=== PATIENT | male | born 1955 | race Two or more races ===

== ENCOUNTER 2024-12-29 07:27 | Inpatient (IN) | payer MEDICARE, MEDICAID ==
[~2024-12-29] VITALS: Ht 167.6 cm; Wt 123.8 kg
--- NOTE | 2024-12-29 07:43 | ECG ---
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
[2024-12-29 07:58] LABS: Hematocrit 38.1 % (41.0-53.0); Hemoglobin 13.1 g/dL (13.5-17.5); Mean Corpuscular Hemoglobin 34.5 pg (28.0-32.0); Mean Corpuscular Volume 100.4 fL (80.0-100.0); Nucleated Red Blood Cells % 0.0 %
[2024-12-29 08:09] VITALS: PULSE 105; RESP 13; O2SAT 98
[2024-12-29 08:16] LABS: INR 1.03 (0.9-1.15); Partial Thromboplastin Time 31.3 SEC (24.5-34.5); Prothrombin Time 10.9 sec (9.3-11.8)
[2024-12-29 08:17] LABS: Alanine Aminotransferase 12 U/L (7-40); Albumin 4.3 g/dL (3.2-4.8); Alkaline Phosphatase 77 U/L (46-116); Anion Gap 13 (5-15); BUN/Creatinine Ratio 14.5 (10.0-20.0); Bilirubin, Total 0.4 mg/dL (0.2-1.0); Blood Urea Nitrogen 25 mg/dL (9-23); Calcium 9.6 mg/dL (8.7-10.4); Carbon Dioxide 24 mmol/L (20-31); Chloride 94 mmol/L (98-107); Glucose 125 mg/dL (74-106); Potassium 4.3 mmol/L (3.5-5.1); Sodium 131 mmol/L (136-145); Total Protein 7.3 g/dL (5.7-8.2)
--- NOTE | 2024-12-29 08:17 | ED.PDOC ---
History of Present Illness HPI Comments 69-YEAR-OLD MALE BROUGHT IN BY AMBULANCE WITH PRIOR MEDICAL HISTORY OF [place], DIABETES AND THE CHIEF COMPLAINT OF GENERALIZED WEAKNESS. EMS REPORT THAT THE PATIENT WAS PICKED UP AT HOME S/P BEING CALLED BY FAMILY. PATIENT STATES ON FEELING VERY WEAK BILATERAL LOWER EXTREMITY PAIN FOR THE PAST TWO WEEKS, AND HAS WORSENED. PATIENT NOTES THAT HIS TOES ARE BLEEDING, BUT DENIES ANY TRAUMA TO THE AREA. DENIES FALLS, CHILLS, FEVER, N/V/D, SOB, CP. NO OTHER ASSOCIATED SYMPTOMS, MODIFIERS, RECENT INJURIES OR SICK CONTACTS PRESENT AT THIS TIME. Chief Complaint: General Weakness Time Seen by MD: 08:15 Reviewed Notes: Nurses Notes, Medications, Allergies Allergies: Coded Allergies: NO KNOWN ALLERGIES (Unverified , 12/29/24) Information Source: Patient, Emergency Med Personnel Mode of Arrival: EMS Severity: Moderate Timing: Weeks Duration: Since onset Prehospital treatment: None Past Medical History PAST MEDICAL HISTORY: DM Past Medical History (Other): [place] Surgical History: Denies all surgeries Family History Family History: Reviewed,noncontributory to illness, Unknown Social History Smoker: Non-Smoker Alcohol: Denies ETOH Use Drugs: Denies Drug Use Lives In: Home Constitutional: reports: weakness; denies: chills, diaphoresis, fatigue, fever, malaise, sweats, others EENTM: denies: blurred vision, double vision, ear bleeding, ear discharge, ear drainage, ear pain, ear ringing, eye pain, eye redness, hearing loss, mouth pain, mouth swelling, nasal discharge, nose bleeding, nose congestion, nose pain, photophobia, tearing, throat pain, throat swelling, voice changes, others Respiratory: denies: cough, hemoptysis, orthopnea, SOB at rest, shortness of breath, SOB with excertion, stridor, wheezing, others Cardiovascular: reports: edema (BILATERAL); denies: chest pain, dizzy spells, diaphoresis, Dyspnea on exertion, irregular heart beat, left arm pain, lightheadedness, palpitations, PND, syncope, others Gastrointestinal: denies: abdomen distended, abdominal pain, blood streaked bowels, constipated, diarrhea, dysphagia, difficulty swallowing, hematemesis, melena, nausea, poor appetite, poor fluid intake, rectal bleeding, rectal pain, vomiting, others Genitourinary: denies: burning, dysuria, flank pain, frequency, hematuria, incontinence, penile discharge, penile sore, pain, testicle pain, testicle swelling, urgency, others Neurological: denies: dizziness, fainting, headache, left sided numbness, left sided weakness, numbness, paresthesia, pre-existing deficit, right sided numbness, right sided weakness, seizure, speech problems, tingling, tremors, weakness, others Musculoskeletal: denies: back pain, gout, joint pain, joint swelling, muscle pain, muscle stiffness, neck pain, others Integumetry: denies: bruises, change in color, change in hair/nails, dryness, laceration, lesions, lumps, rash, wounds, others Allergic/Immunocompromised: denies: Difficulty Healing, Frequent Infections, Hives, Itching, others Hematologic/Lymphatic: denies: anemia, blood clots, easy bleeding, easy bruising, swollen glands, others Endocrine: denies: excessive hunger, excessive sweating, excessive thirst, excessive urination, flushing, intolerance to cold, intolerance to heat, unexplained weight gain, unexplained weight loss, others Psychiatric: denies: anxiety, bipolar disorder, depression, hopeless, panic disorder, schizophrenia, sleepless, suicidal, others All Other Systems: Reviewed and Negative Physical Exam General Appearance: No Apparent Distress, Normal HEENT: Normal ENT Inspection, Pharynx Normal, TMs Normal Neck: Full Range of Motion, Non-Tender, Normal, Normal Inspection Respiratory: Chest Non-Tender, Lungs Clear, No Accessory Muscle Use, No Respiratory Distress, Normal Breath Sounds Cardiovascular: No Edema, No JVD, No Murmur, No Gallop, Normal Peripheral Pulses, Regular Rate/Rhythm Breast Exam: Deferred Gastrointestinal: No Organomegaly, Non Tender, No Pulsatile Mass, Normal Bowel Sounds, Soft Genitalia: Deferred Pelvic: Deferred Rectal: Deferred Extremities: No calf tenderness, Normal capillary refill, Normal inspection, Normal range of motion, Non-tender, No pedal edema Musculoskeletal : Apperance: Normal Neurologic: 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 Was a procedure done?: No EKG EKG : Pulse Rate (adult): 116 [place]: Normal Cardiac Rhythm: ST Block: None Hypertrophy: None ST: Normal Differential Dx Considerations may include: Cellulitis, viral syndrome, electrolyte abnormality X-Ray, Labs, Meds, VS Vital Signs Date Time Temp Pulse Resp B/P (MAP) Pulse Ox O2 Delivery O2 Flow Rate FiO2 12/29/24 10:30 98.8 93 10 122/62 (82) 97 98.8 12/29/24 08:17 116 12/29/24 08:09 95 12/29/24 08:09 105 13 139/73 (95) 98 12/29/24 08:09 105 13 98 Nasal Cannula* 2 28 12/29/24 07:51 98.1 120 18 120/62 93 98.1 12/29/24 07:37 116 Lab Test 12/29/24 11:50 12/29/24 09:27 12/29/24 07:43 Range/Units Troponin I High Sensitivity 16 15 14 </=54 ng/L White Blood Count 10.3 4.4-10.8 10^3/uL Red Blood Count 3.79 L 4.5-5.90 10^6/uL Hemoglobin 13.1 L 13.5-17.5 g/dL Hematocrit 38.1 L 41.0-53.0 % Mean Corpuscular Volume 100.4 H 80.0-100.0 fL Mean Corpuscular Hemoglobin 34.5 H 28.0-32.0 pg Mean Corpuscular Hemoglobin Concent 34.4 32.0-36.0 g/dL Red Cell Distribution Width 14.7 H 11.8-14.3 % Platelet Count 291 140-450 10^3/uL Mean Platelet Volume 8.2 6.9-10.8 fL Neutrophils (%) (Auto) 81.4 H 37.0-80.0 % Lymphocytes (%) (Auto) 8.6 L 10.0-50.0 % Monocytes (%) (Auto) 7.7 0.0-12.0 % Eosinophils (%) (Auto) 1.4 0.0-7.0 % Basophils (%) (Auto) 0.9 0.0-2.0 % Neutrophils # (Auto) 8.4 1.6-8.6 10 ^3/uL Lymphocytes # (Auto) 0.9 0.4-5.4 10 ^3/uL Monocytes # (Auto) 0.8 0-1.3 10 ^3/uL Eosinophils # (Auto) 0.1 0-0.8 10 ^3/uL Basophils # (Auto) 0.1 0-0.2 10 ^3/uL Nucleated Red Blood Cells 0.0 % Prothrombin Time 10.9 9.3-11.8 sec Prothrombin Time INR 1.03 0.9-1.15 Activated Partial Thromboplast Time 31.3 24.5-34.5 SEC Sodium Level 131 L 136-145 mmol/L Potassium Level 4.3 3.5-5.1 mmol/L Chloride Level 94 L 98-107 mmol/L Carbon Dioxide Level 24 20-31 mmol/L Anion Gap 13 5-15 Blood Urea Nitrogen 25 H 9-23 mg/dL Creatinine 1.72 H 0.700-1.30 mg/dL Glomerular Filtration Rate Calc 43 >90 mL/min BUN/Creatinine Ratio 14.5 10.0-20.0 Serum Glucose 125 H 74-106 mg/dL Calcium Level 9.6 8.7-10.4 mg/dL Total Bilirubin 0.4 0.2-1.0 mg/dL Aspartate Amino Transferase (AST) 21 13-40 U/L Alanine Aminotransferase (ALT) 12 7-40 U/L Alkaline Phosphatase 77 46-116 U/L Total Protein 7.3 5.7-8.2 g/dL Albumin 4.3 3.2-4.8 g/dL Time of 1ST Reevaluation: 08:45 Reevaluation 1ST: Unchanged Patient Education/Counseling: Diagnosis, Treatment, Prognosis Family Education/Counseling: No Family Present SEPSIS Sepsis Screen Physician Orders Urinalysis (12/29/24 07:30) Chest Portable (12/29/24 07:31) Electrocardigram (12/29/24 08:31) Electrocardigram (12/29/24 10:31) Lactic Acid W/ Reflex Order (12/29/24 11:52) Blood Culture (12/29/24 11:52) Vancomycin 1gm/250ml Kit (12/29/24 12:45) Vital Signs Date Time Temp Pulse Resp B/P (MAP) Pulse Ox O2 Delivery O2 Flow Rate FiO2 12/29/24 10:30 98.8 93 10 122/62 (82) 97 98.8 12/29/24 08:17 116 9/24/25 08:09 95 12/29/24 08:09 105 13 139/73 (95) 98 12/29/24 08:09 105 13 98 Nasal Cannula* 2 28 12/29/24 07:51 98.1 120 18 120/62 93 98.1 12/29/24 07:37 116 Laboratory Tests Test 12/29/24 07:43 White Blood Count 10.3 10^3/uL (4.4-10.8) Departure 1 Departure Time of Disposition: 12:51 (Patient with cellulitis and generalized weakness. We will empirically cover patient with antibiotics admit patient for further workup) Impression: Primary Impression: Cellulitis Additional Impression: Generalized weakness Disposition: ADMITTED INPATIENT Admit to: Med Surg Condition: Serious Critical Care Note Critical Care Time?: No Stability Stability form required: No I personally scribed for ALCON VELAZQUEZ MD ([email or web address]) on 12/29/24 at 08:17. Electronically submitted by Max Brooks ([email or web address]). ALCON VELAZQUEZ MD Dec 29, 2024 08:17
--- NOTE | 2024-12-29 08:26 | DVH ---
EXAM: XY CHEST PORTABLE Indication: weakness Technique: Single frontal view of the chest was obtained Comparison: None FINDINGS: Lines and Tubes: None Lungs: No focal consolidation. Pleura: No effusion. No pneumothorax. Cardiomediastinal contours: Unremarkable Bones: No acute osseous abnormality. IMPRESSION: No acute cardiopulmonary disease.
[2024-12-29] MEDS: VANCOMYCIN 1GM/250ML KIT 250 ML IV ONE (13:06)
[2024-12-29] MEDS ORDERED: DOCUSATE SOD 100 MG CAP PO PRN (14:15)
[2024-12-29] MEDS ORDERED: ONDANSETRON HCL 4 MG/2 ML VIAL IV PRN (14:15)
[2024-12-29] MEDS ORDERED: ACETAMINOPHEN 325 MG TAB PO PRN (14:15)
[2024-12-29] MEDS ORDERED: METF-370 PO (14:18)
[2024-12-29] MEDS ORDERED: LOSA100T33 PO (14:18)
[2024-12-29] MEDS ORDERED: GAB100C PO (14:18)
[2024-12-29] MEDS ORDERED: HYDR-4798 PO (14:18)
[2024-12-29] MEDS ORDERED: ZOLP12.569 PO (14:18)
[2024-12-29] MEDS ORDERED: CHOL1TAB30 PO (14:18)
[2024-12-29] MEDS ORDERED: BACL10TA PO (14:18)
[2024-12-29 14:19] LABS: Urine Protein, UAD Negative (Negative)
--- NOTE | 2024-12-29 14:27 | DVH ---
CLINICAL INDICATION: Pain; fall TECHNIQUE: 3 radiographic views of the left foot were obtained. Comparison: XY R FOOT 3 VIEW XRAY on DOS: 12/29/24 FINDINGS/IMPRESSION: There is no evidence of acute fracture or dislocation. The visualized joint space is well maintained. Small plantar and posterior calcaneal enthesophytes. The alignment is anatomical. There is no radiopaque foreign body.
[2024-12-29] MEDS ORDERED: DEXTROSE (50%) 50ML SYRG IV PRN (14:30)
[2024-12-29] MEDS ORDERED: ZOLPIDEM TARTRATE 12.5 MG PO PRN (14:30)
--- NOTE | 2024-12-29 14:30 | DVH ---
CLINICAL INDICATION:pain; fall TECHNIQUE: 3 radiographic views of the right were obtained. Comparison: XY L FOOT 3 VIEW XRAY on DOS: 12/29/24 FINDINGS/IMPRESSION: There is no evidence of acute fracture or dislocation. The visualized joint space is well maintained. Small plantar and posterior calcaneal enthesophytes. The alignment is anatomical. There is no radiopaque foreign body.
--- NOTE | 2024-12-29 14:44 | DVHHP2 ---
History of Present Illness Reason for Visit: Feet pain History of Present Illness Stevie Sahu is a 69-year-old male with past medical history of diabetes, coronary artery disease, hard of hearing, obesity, and hypertension, who came to the hospital due to bilateral feet pain. Patient has swelling to his bilateral lower extremities that he states has been for for years. His bilateral feet have small wounds and bleeding to the toes that he states is new and why he came to the hospital. Patient states he has been working on losing weight. He is on [facility] to help him. Cardiovascular: CAD, Other (PTCA) Pulmonary: COPD Endocrine: Diabetes Past Surgical History: Other (PTCA, carpal tunnel ) Smoke: No ALCOHOL: heavy (4 hard liquor drinks or 3 tall cans of beer a day) Drugs: None Lives: with Family Domestic Violence: Neg Review of Systems Constitutional: No: Fever, Chills, Sweats, Weakness, Malaise, Other Eyes: No: Pain, Vision change, Conjunctivae inflammation, Eyelid inflammation, Other, Redness ENT: No: Ear pain, Ear discharge, Nose pain, Nose discharge, Nose congestion, Mouth pain, Mouth swelling, Throat pain, Throat swelling, Other Respiratory: No: Cough, Dry, Shortness of breath, SOB with excertion, Wheezing, Hemoptysis, Pleuritic Pain, Sputum, Wheezing, Other Cardiovascular: Edema (bilateral lower extremities); No: Chest Pain, Palpitations, Orthopnea, Paroxysmal Noc. Dyspnea, Lt Headedness, Other Gastrointestinal: No: Nausea, Vomiting, Abdominal Pain, Diarrhea, Constipation, Melena, Hematochezia, Other Genitourinary: No Dysuria, No Frequency, No Incontinence, No Hematuria, No Retention, No Other Musculoskeletal: No: other, neck pain, shoulder pain, arm pain, back pain, hand pain, leg pain, foot pain Skin: Other (bleeding/cuts to toes on bilateral feet); No: Rash, Lesions, Jaundice, Bruising Neurological: No: Weakness, Numbness, Incoordination, Change in speech, Confusion, Seizures, Other Allergies: Coded Allergies: NO KNOWN ALLERGIES (Unverified , 12/29/24) Medications Current Medications Medications Dose Ordered Sig/Carloz Route Start Time Stop Time Status Last Admin Dose Admin Ondansetron HCl 4 mg Q4HP PRN IV 12/29/24 14:15 UNV Docusate Sodium 100 mg BIDPRN PRN PO 12/29/24 14:15 UNV Acetaminophen 650 mg Q6HP PRN PO 12/29/24 14:15 UNV Exam Vital Signs Vital Signs Date Time Temp Pulse Resp B/P (MAP) Pulse Ox O2 Delivery O2 Flow Rate FiO2 12/29/24 12:00 96 12/29/24 10:30 98.8 10 122/62 (82) 97 98.8 12/29/24 08:09 Nasal Cannula* 2 28 General Appearance: Alert, Oriented X3, Cooperative, mild distress HEENT: Atraumatic, PERRLA Respiratory: Clear to auscultation, Normal air movement Cardiovascular: Regular rate, Normal S1, Normal S2 Abdominal: Normal bowel sounds, Soft Extremities: No clubbing, No cyanosis, Other (swelling bilateral lower ectremities) Skin: No significant lesion (small wound to bilateral lower extremities) Neuro: Normal speech Psych/Mental Status: Mental status NL, Mood NL Labs/Xrays Labs Test 12/29/24 13:05 12/29/24 11:50 12/29/24 07:43 12/29/24 07:30 Range/Units Lactic Acid Level 1.9 0.4-2.0 mmol/L Troponin I High Sensitivity 16 </=54 ng/L White Blood Count 10.3 4.4-10.8 10^3/uL Red Blood Count 3.79 L 4.5-5.90 10^6/uL Hemoglobin 13.1 L 13.5-17.5 g/dL Hematocrit 38.1 L 41.0-53.0 % Mean Corpuscular Volume 100.4 H 80.0-100.0 fL Mean Corpuscular Hemoglobin 34.5 H 28.0-32.0 pg Mean Corpuscular Hemoglobin Concent 34.4 32.0-36.0 g/dL Red Cell Distribution Width 14.7 H 11.8-14.3 % Platelet Count 291 140-450 10^3/uL Mean Platelet Volume 8.2 6.9-10.8 fL Neutrophils (%) (Auto) 81.4 H 37.0-80.0 % Lymphocytes (%) (Auto) 8.6 L 10.0-50.0 % Monocytes (%) (Auto) 7.7 0.0-12.0 % Eosinophils (%) (Auto) 1.4 0.0-7.0 % Basophils (%) (Auto) 0.9 0.0-2.0 % Neutrophils # (Auto) 8.4 1.6-8.6 10 ^3/uL Lymphocytes # (Auto) 0.9 0.4-5.4 10 ^3/uL Monocytes # (Auto) 0.8 0-1.3 10 ^3/uL Eosinophils # (Auto) 0.1 0-0.8 10 ^3/uL Basophils # (Auto) 0.1 0-0.2 10 ^3/uL Nucleated Red Blood Cells 0.0 % Prothrombin Time 10.9 9.3-11.8 sec Prothrombin Time INR 1.03 0.9-1.15 Activated Partial Thromboplast Time 31.3 24.5-34.5 SEC Sodium Level 131 L 136-145 mmol/L Potassium Level 4.3 3.5-5.1 mmol/L Chloride Level 94 L 98-107 mmol/L Carbon Dioxide Level 24 20-31 mmol/L Anion Gap 13 5-15 Blood Urea Nitrogen 25 H 9-23 mg/dL Creatinine 1.72 H 0.700-1.30 mg/dL Glomerular Filtration Rate Calc 43 >90 mL/min BUN/Creatinine Ratio 14.5 10.0-20.0 Serum Glucose 125 H 74-106 mg/dL Calcium Level 9.6 8.7-10.4 mg/dL Total Bilirubin 0.4 0.2-1.0 mg/dL Aspartate Amino Transferase (AST) 21 13-40 U/L Alanine Aminotransferase (ALT) 12 7-40 U/L Alkaline Phosphatase 77 46-116 U/L Total Protein 7.3 5.7-8.2 g/dL Albumin 4.3 3.2-4.8 g/dL Urine Color Light-yellow Yellow Urine Clarity Clear Clear Urine pH 5.0 5.0-9.0 Urine Specific [place] 1.017 1.001-1.035 Urine Protein Negative Negative Urine Ketones Negative Negative Urine Blood Negative Negative /uL Urine Nitrite Negative Negative Urine Bilirubin Negative Negative Urine Urobilinogen Normal Negative mg/dL Urine Leukocyte Esterase Negative Negative /uL Urine RBC 1 0 - 3 /hpf Urine Microscopic WBC 1 0-3 /HPF Urine Squamous Epithelial Cells Few <5 /hpf Urine Bacteria None seen None Seen /hpf Urine Glucose Normal Normal mg/dL EXAM: XY CHEST PORTABLE FINDINGS: Lines and Tubes: None Lungs: No focal consolidation. Pleura: No effusion. No pneumothorax. Cardiomediastinal contours: Unremarkable Bones: No acute osseous abnormality. IMPRESSION: No acute cardiopulmonary disease. SEPSIS Sepsis Screen Date sepsis recognized/suspect: Dec 29, 2024 Time Sepsis recognized/suspect: 808 Recent Procedure: No On Antibiotic Therapy: No Respiratory Rate >20: No Heart Rate >90: Yes Temp<36 C (96.8 F) or >38.3 C: No SBP <90 or MAP <65 mmHG: No New Acute Mental Status Change: No Is the patient on CPAP, BIPAP,: No Physician Orders Urinalysis (12/29/24 07:30) Chest Portable (12/29/24 07:31) Electrocardigram (12/29/24 08:31) Electrocardigram (12/29/24 10:31) Blood Culture (12/29/24 11:52) L Foot 3 View Xray (12/29/24 13:42) R Foot 3 View Xray (12/29/24 13:42) Admit (12/29/24 14:08) Code Status (12/29/24 14:08) 2 Gm Sodium Diet (12/29/24 Dinner) Ondansetron Hcl (Zofran) (12/29/24 14:15) Docusate Sodium Capsule (Colace Capsule) (12/29/24 14:15) Fall Risk Precautions In Place QSHIFT (12/29/24 14:08) Complete Blood Count (12/30/24 04:00) Comprehensive Metabolic Panel (12/30/24 04:00) Pt Request For Service (12/29/24 14:08) Echo 2d Mode Cardiac Dop (12/29/24 14:08) Condition: Serious (12/29/24 14:08) Acetaminophen Tablet (Tylenol Tablet) (12/29/24 14:15) Glucose Blood (Accu-Chek Comfort Curve T (12/29/24 17:00) Bedtime Insulin Scale (12/29/24 22:00) Moderate Insulin Ss (12/29/24 17:00) Dextrose 50% Syringe (12/29/24 14:30) Baclofen Tablet (Liorisal Tablet) (12/29/24 14:30) Cholecalciferol Tablet (Vitamin D3 Table (12/30/24 10:00) Gabapentin Capsule (Neurontin Capsule) (12/30/24 10:00) Hydrocodone-Acet 10/325mg Tab ([place] 10/ (12/29/24 14:30) (Nf) Losartan Potassium & Hydrochlo (Los (12/30/24 10:00) (Nf) Zolpidem Tartrate (Zolpidem Tartrat (12/29/24 14:30) Vital Signs Date Time Temp Pulse Resp B/P (MAP) Pulse Ox O2 Delivery O2 Flow Rate FiO2 12/29/24 12:00 96 12/29/24 10:30 98.8 93 10 122/62 (82) 97 98.8 12/29/24 08:17 116 12/29/24 08:09 95 12/29/24 08:09 105 13 139/73 (95) 98 12/29/24 08:09 105 13 98 Nasal Cannula* 2 28 12/29/24 07:51 98.1 120 18 120/62 93 98.1 12/29/24 07:37 116 Laboratory Tests Test 12/29/24 07:43 12/29/24 13:05 White Blood Count 10.3 10^3/uL (4.4-10.8) Lactic Acid Level 1.9 mmol/L (0.4-2.0) Medications Medications Dose Ordered Sig/Carloz Route Start Time Stop Time Status Last Admin Dose Admin Vancomycin HCl 250 ml @ 250 mls/hr ONCE ONCE IV 12/29/24 12:45 12/29/24 13:44 DC 12/29/24 13:06 250 MLS/HR Assessment/Plan Assessment/Plan Assessment: Cellulitis, bilateral lower extremities, Acute kidney injury, Diabetes, ETOH dependance, Plan: Admit to Med-Surg, Podiatry consult, Bilateral lower extremities arterial scan, IV antibiotics, IV hydration, Wound consult, A1c, PO supplements for ETOH withdrawal, Accu checks Q AC&HS with sliding scale, Home medications reconciled, need home dose of Lantus Plan discussed with: Patient My Orders Orders - KRISTAN JACOB GEOGRAPHY HEAD Procedure Category Date Status Time Admit ADMIT 12/29/24 Transmitted 14:08 Code Status CODE 12/29/24 Transmitted 14:08 2 Gm Sodium Diet DIET 12/29/24 Transmitted Dinner Ondansetron Hcl PHA 12/29/24 Logged (Zofran) 14:15 Docusate Sodium PHA 12/29/24 Logged Capsule (Colace 14:15 Fall Risk Precautions DONY 12/29/[address] 14:08 Complete Blood Count LAB 12/30/24 Verified 04:00 Comprehensive LAB 12/30/24 Verified Metabolic Panel 04:00 Pt Request For Service PT 12/29/24 Logged 14:08 Echo 2d Mode Cardiac US 12/29/24 Logged DOP 14:08 Condition: Serious DONY 12/29/24 In Process 14:08 Acetaminophen Tablet PHA 12/29/24 Logged (Tylenol Tablet) 14:15 Glucose Blood PHA 12/29/24 Verified (Accu-Chek Comfort 17:00 Bedtime Insulin Scale PHA 12/29/24 Verified 22:00 Moderate Insulin Ss PHA 12/29/24 Verified 17:00 Dextrose 50% Syringe PHA 12/29/24 Verified 14:30 Baclofen Tablet PHA 12/29/24 Verified (Liorisal Tablet) 14:30 Cholecalciferol PHA 12/30/24 Verified Tablet (Vitamin D3 10:00 Gabapentin Capsule PHA 12/30/24 Verified (Neurontin Capsule) 10:00 Hydrocodone-Acet PHA 12/29/24 Verified 10/325mg Tab ([place] 14:30 (Nf) Losartan PHA 12/30/24 Verified Potassium & Hydrochlo 10:00 (Nf) Zolpidem PHA 12/29/24 Verified Tartrate (Zolpidem 14:30 Date of Service: Dec 29, 2024 Billing Provider: KRISTAN JACOB Common Visit Codes: [id number] INP/OBS CARE (MOD) KRISTAN JACOB Dec 29, 2024 14:44
[2024-12-29] MEDS ORDERED: VANCOMYCIN PER PHARMACY 0 MG IV SCH (14:45)
--- NOTE | 2024-12-29 15:30 | DVH ---
BILATERAL LOWER EXTREMITY ARTERIAL DUPLEX ULTRASOUND STUDY: REASON FOR EXAM: bilateral lower extremities swelling and cellulitis TECHNIQUE: The full lengths of the arterial segments were evaluated with color-flow Doppler ultrasoun d. Suspected abnormalities were evaluated with araiza scale ultrasound. Belt Dresser spectral Doppler waveforms, with velocity measurements were obtained. Spectral waveforms with velocity measurements w ere obtained 2 to 4 cm central to any areas of significant stenosis. Common femoral, superficial femo ral, popliteal, posterior tibial, anterior tibial, and dorsal pedal arteries were evaluated. FINDINGS: Right: There is diffuse atherosclerotic plaque throughout the right lower extremity. The common femor al artery waveform is multiphasic with a brisk upstroke. The superficial femoral and popliteal arteri es are patent with multiphasic waveforms. The posterior tibial, anterior tibial, and dorsalis pedis a rteries are patent with multiphasic waveforms. Left: There is diffuse atherosclerotic plaque throughout the left lower extremity. The common femora l artery waveform is multiphasic with a brisk upstroke. The superficial femoral and popliteal arterie s are patent with multiphasic waveforms. The posterior tibial, anterior tibial, and dorsalis pedis ar teries are patent with multiphasic waveforms. There is subcutaneous soft tissue edema in both lower extremities below the knees. IMPRESSION: No hemodynamically significant stenosis.
[2024-12-29 15:46] VITALS: BP 134/80; PULSE 84; RESP 18; TEMP 97.6; O2SAT 96
[2024-12-29] MEDS ORDERED: PERCOT PO (16:12)
[2024-12-29] MEDS: HYDROcodone-ACET 10/325MG TAB PO PRN (16:29)
[2024-12-29 17:00] VITALS: BP 126/82; PULSE 82; RESP 18; TEMP 97.8; O2SAT 98
[2024-12-29] MEDS: InsuLIN REG 1unit/0.01ml Soln (100units/ml) SC SCH ×2 (17:00→21:53)
[2024-12-29] MEDS: ACCU-CHEK COMFORT CURVE STRIP VI SCH (17:00)
[2024-12-29] MEDS: SODIUM CHLORIDE 0.9% 1,000 ML IV ONE (18:49)
[2024-12-29 20:00] VITALS: PULSE 83; RESP 19; O2SAT 96
[2024-12-29 21:00] VITALS: BP 119/66; PULSE 83; RESP 19; TEMP 97.8; O2SAT 96
[2024-12-29] MEDS: LORazepam 2MG/ML-1ML VIAL IV PRN (21:43)
[2024-12-29] MEDS: CLINDAMYCIN 600MG IV 50 ML IV SCH (21:44)
[2024-12-29] MEDS: BACLOFEN 10 MG TAB PO PRN (21:45)
[2024-12-30] VITALS (8 sets, daily range): BP systolic 116–141; BP diastolic 65–81; PULSE 72–83; RESP 17–19; TEMP 97.1–98.3; O2SAT 96–98
[2024-12-30 06:48] LABS: Hematocrit 34.0 % (41.0-53.0); Hemoglobin 11.6 g/dL (13.5-17.5); Mean Corpuscular Hemoglobin 34.5 pg (28.0-32.0); Mean Corpuscular Volume 101.1 fL (80.0-100.0); Nucleated Red Blood Cells % 0.0 %
[2024-12-30 07:12] LABS: Alanine Aminotransferase 12 U/L (7-40); Albumin 3.7 g/dL (3.2-4.8); Alkaline Phosphatase 68 U/L (46-116); Anion Gap 13 (5-15); BUN/Creatinine Ratio 15.2 (10.0-20.0); Blood Urea Nitrogen 17 mg/dL (9-23); Calcium 9.1 mg/dL (8.7-10.4); Carbon Dioxide 24 mmol/L (20-31); Glucose 89 mg/dL (74-106); Total Protein 6.4 g/dL (5.7-8.2)
[2024-12-30 07:13] LABS: Bilirubin, Total 0.4 mg/dL (0.2-1.0)
[2024-12-30 07:16] LABS: Chloride 98 mmol/L (98-107); Potassium 4.0 mmol/L (3.5-5.1); Sodium 135 mmol/L (136-145)
[2024-12-30] MEDS ORDERED: PATIENTS OWN MEDICATION (Losartan Potassium & Hydrochlo (Losartan Potassium/Hydroc) 1 TAB) PO SCH (10:00)
[2024-12-30] MEDS: GABAPENTIN 100 MG CAP PO SCH (10:09)
[2024-12-30] MEDS: MULTIPLE VITAMINS W/ MINERALS TAB PO SCH (10:09)
[2024-12-30] MEDS: THIAMINE HCL 100 MG TAB PO SCH (10:09)
[2024-12-30] MEDS: LOSARTAN POTASSIUM 50 MG TAB PO SCH (10:09)
[2024-12-30] MEDS: FOLIC ACID 1 MG TAB PO SCH (10:10)
[2024-12-30] MEDS: hydroCHLOROthiazide 25 MG TAB PO SCH (10:10)
[2024-12-30] MEDS: CHOLECALCIFEROL (VITD3) 1,000UNIT=25mCg TAB PO SCH (10:11)
--- NOTE | 2024-12-30 11:50 | DVHPN2 ---
Reviewed: Care Plan, H&P, Labs, Medications, Previous Orders, Radiology Changes from previous H/P or p: No Changes Eyes: No Pain, No Vision change, No Conjunctivae inflammation, No Eyelid inflammation, No Other, No Redness ENT: No Ear pain, No Ear discharge, No Nose pain, No Nose discharge, No Nose congestion, No Mouth pain, No Mouth swelling, No Throat pain, No Throat swelling, No Other Cardiovascular: No Chest Pain, No Palpitations, No Orthopnea, No Paroxysmal Noc. Dyspnea; Edema (bilateral lower extremities); No Lt Headedness, No Other Respiratory: No Cough, No Dry, No Shortness of breath, No SOB with excertion, No Wheezing, No Hemoptysis, No Pleuritic Pain, No Sputum, No Other Gastrointestinal: No Nausea, No Vomiting, No Abdominal Pain, No Diarrhea, No Constipation, No Melena, No Hematochezia, No Other Genitourinary: No Dysuria, No Frequency, No Incontinence, No Hematuria, No Retention, No Other Musculoskeletal: No other, No neck pain, No shoulder pain, No arm pain, No back pain, No hand pain, No leg pain, No foot pain Skin: No Rash, No Lesions, No Jaundice, No Bruising; Other (bleeding/cuts to toes on bilateral feet) Objective Vitals Vital Signs Date Time Temp Pulse Resp B/P (MAP) Pulse Ox O2 Delivery O2 Flow Rate FiO2 12/30/24 10:10 130/77 12/30/24 09:00 98.1 74 17 97 98.1 12/29/24 20:00 Room Air* 0 21 Intake/Output Intake and Output 12/30/24 07:00 Intake Total 1295 ml Output Total 1200 ml Balance 95 ml Intake Oral 1195 ml IV Total 100 ml Output Urine Total 1200 ml # Voids 3 Medications Current Medications Medications Dose Ordered Sig/Carloz Route Start Time Stop Time Status Last Admin Dose Admin Ondansetron HCl 4 mg Q4HP PRN IV 12/29/24 14:15 Docusate Sodium 100 mg BIDPRN PRN PO 12/29/24 14:15 Acetaminophen 650 mg Q6HP PRN PO 12/29/24 14:15 Diagnostic Test (Pha) 1 strip ACHS 12/29/24 17:00 12/30/24 11:40 1 STRIP Insulin Human Regular HS SC 12/29/24 22:00 Insulin Human Regular AC SC 12/29/24 17:00 Dextrose 50 ml UD PRN IV 12/29/24 14:30 Baclofen 10 mg TIDP PRN PO 12/29/24 14:30 12/29/24 21:45 10 MG Cholecalciferol 1,000 unit DAILY PO 12/30/24 10:00 12/30/24 10:11 1,000 UNIT Gabapentin 100 mg DAILY PO 12/30/24 10:00 12/30/24 10:09 100 MG Acetaminophen/ Hydrocodone Bitart 1 tab Q6HP PRN PO 12/29/24 14:30 12/30/24 05:15 1 TAB Patient Own Medication 1 tab DAILY PO 12/30/24 10:00 UNV Patient Own Medication 1 tab QHSP PRN PO 12/29/24 14:30 Thiamine HCl 100 mg DAILY PO 12/30/24 10:00 12/30/24 10:09 100 MG Folic Acid 1 mg DAILY PO 12/30/24 10:00 12/30/24 10:10 1 MG Multivitamins/ Minerals 1 tab DAILY PO 12/30/24 10:00 12/30/24 10:09 1 TAB Clindamycin Phosphate 50 ml @ 50 mls/hr Q8HR IV 12/29/24 22:00 12/30/24 05:30 50 MLS/HR Vancomycin HCl 0 ml @ 0 mls/hr UD IV 12/29/24 14:45 Losartan Potassium 100 mg DAILY PO 12/30/24 10:00 12/30/24 10:09 100 MG Hydrochlorothiazide 25 mg DAILY PO 12/30/24 10:00 12/30/24 10:10 25 MG Lorazepam 1 mg Q2HP PRN IV 12/29/24 17:15 12/29/24 21:43 1 MG Laboratory Results Laboratory Tests 12/30/24 04:44 Chemistry Test 12/30/24 04:44 Albumin 3.7 g/dL (3.2-4.8) Calcium Level 9.1 mg/dL (8.7-10.4) Total Protein 6.4 g/dL (5.7-8.2) LFT Test 12/30/24 04:44 Alanine Aminotransferase (ALT) 12 U/L (7-40) Alkaline Phosphatase 68 U/L (46-116) Aspartate Amino Transferase (AST) 31 U/L (13-40) Total Bilirubin 0.4 mg/dL (0.2-1.0) HgA1c, TSH Test 12/30/24 04:44 Hemoglobin A1c 5.4 % A1C (<5.7) Urinalysis Test 12/29/24 07:30 Urine Color Light-yellow (Yellow) Urine Clarity Clear (Clear) Urine pH 5.0 (5.0-9.0) Urine Specific [place] 1.017 (1.001-1.035) Urine Protein Negative (Negative) Urine Ketones Negative (Negative) Urine Blood Negative /uL (Negative) Urine Nitrite Negative (Negative) Urine Bilirubin Negative (Negative) Urine Urobilinogen Normal mg/dL (Negative) Urine Leukocyte Esterase Negative /uL (Negative) Urine RBC 1 /hpf (0 - 3) Urine Microscopic WBC 1 /HPF (0-3) Urine Squamous Epithelial Cells Few /hpf (<5) Urine Bacteria None seen /hpf (None Seen) Urine Glucose Normal mg/dL (Normal) Labs and/or images reviewed: Labs reviewed by me, Image(s) reviewed by me Assessment/Plan Assessment/Plan Cellulitis, bilateral lower extremities and feet, clindamycin, vancomycin , 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 Agarwal Acute kidney injury, Uncontrolled diabetes: Insulin sliding scale Diabetic nephropathy neuropathy vasculopathy Chronic current alcohol abuse: Counseling, thiamine folic acid Coronary artery disease status post stents Acute COPD exacerbation Hypertension Hard of hearing Rule out DVT: Venous ultrasound pending Medication noncompliance Lives with his son who is the visual presentation manager for [employer] Moderate malnutrition Moderate obesity BMI 45 Time spent 70 minutes Advanced care planning time 20 minutes Patient is full code Plan discussed with: Patient Date of Service: Dec 30, 2024 Billing Provider: NIKKI LORA MD Common Visit Codes: 91094-[id number] CARE 30-74 MIN NIKKI LORA MD Dec 30, 2024 11:50
[2024-12-30] MEDS: VANCOMYCIN 1GM/250ML KIT 250 ML IV SCH (13:04)
--- NOTE | 2024-12-30 13:28 | DVHCONRES ---
Date Seen: Dec 30, 2024 Reason for Consultation Bilateral foot wounds History of Present Illness Stevie Sahu is a 69-year-old male with past medical history of diabetes, coronary artery disease, hard of hearing, obesity, and hypertension, who came to the hospital due to bilateral feet pain. Patient has swelling to his bilateral lower extremities that he states has been for for years. His bilateral feet have small wounds and bleeding to the toes that he states is new and why he came to the hospital. Patient states he has been working on losing weight. He is on BragBet to help him. Past Medical History See H&P Past Surgical History See H&P Allergies: Coded Allergies: NO KNOWN ALLERGIES (Unverified , 12/29/24) Home Meds Reported Medications Oxycodone W/ Acetaminophen (Percocet 5/325MG) 1 Tab Tb, 10 TAB PO QID, #120 TAB 12/29/24 Losartan Potassium & Hydrochlo (Losartan Potassium/Hydroc) 1 Tab Tab, 1 TAB PO DAILY, #30 TAB 5 Refills 12/29/24 Gabapentin (Gabapentin) 100 Mg Cap, 1 CAP PO DAILY 12/29/24 Zolpidem Tartrate (ZOLPIDEM TARTRATE ER) 12.5 Mg Tab, 1 TAB PO QHSP PRN 12/29/24 Cholecalciferol (Gnp Vitamin D) 1,000 Unit Tab, 1 TAB PO DAILY 12/29/24 Metformin Hydrochloride (Metformin Hcl) 500 Mg Tab, 2 TAB PO BID 12/29/24 Discontinued Reported Medications Hydrocodone-Acetaminophen (Hydrocodone Bitartrate/AC 10-325 mg) 1 Tab Tab, 1 TAB PO Q6HP PRN, TAB 12/29/24 Baclofen (Baclofen) 10 Mg Tab, 1 TAB PO TIDP PRN 12/29/24 Current Medications Current Medications Medications (Trade) Dose Ordered Sig/Carloz Route PRN Reason Start Time Stop Time Status Last Admin Ondansetron HCl (Zofran) 4 mg Q4HP PRN IV NAUSEA / VOMITING 12/29/24 14:15 Docusate Sodium (Colace Capsule) 100 mg BIDPRN PRN PO FOR CONSTIPATION 12/29/24 14:15 Acetaminophen (Tylenol Tablet) 650 mg Q6HP PRN PO PAIN SCALE 1-3 OR TEMP>100.4 12/29/24 14:15 Diagnostic Test (Pha) (Accu-Chek Comfort Curve T) 1 strip ACHS 12/29/24 17:00 12/30/24 11:40 Insulin Human Regular (InsuLIN R) HS SC 12/29/24 22:00 Insulin Human Regular (InsuLIN R) AC SC 12/29/24 17:00 12/30/24 11:59 Dextrose 50 ml UD PRN IV Blood Sugar LESS THAN 60 12/29/24 14:30 Baclofen (Liorisal Tablet) 10 mg TIDP PRN PO FOR MUSCLE SPASM 12/29/24 14:30 12/29/24 21:45 Cholecalciferol (Vitamin D3 Tablet) 1,000 unit DAILY PO 12/30/24 10:00 12/30/24 10:11 Gabapentin (Neurontin Capsule) 100 mg DAILY PO 12/30/24 10:00 12/30/24 10:09 Acetaminophen/ Hydrocodone Bitart ([place] 10/325MG Tab) 1 tab Q6HP PRN PO PAIN SCALE 1 THRU 6 12/29/24 14:30 12/30/24 11:56 Patient Own Medication 1 tab DAILY PO 12/30/24 10:00 UNV Patient Own Medication 1 tab QHSP PRN PO FOR INSOMNIA 12/29/24 14:30 Thiamine HCl 100 mg DAILY PO 12/30/24 10:00 12/30/24 10:09 Folic Acid 1 mg DAILY PO 12/30/24 10:00 12/30/24 10:10 Multivitamins/ Minerals (Mvi W/ Minerals Tablet) 1 tab DAILY PO 12/30/24 10:00 12/30/24 10:09 Clindamycin Phosphate 50 ml @ 50 mls/hr Q8HR IV 12/29/24 22:00 12/30/24 05:30 Vancomycin HCl 0 ml @ 0 mls/hr UD IV 12/29/24 14:45 Losartan Potassium (Cozaar Tablet) 100 mg DAILY PO 12/30/24 10:00 12/30/24 10:09 Hydrochlorothiazide (hydroCHLOROthiazide TABLET) 25 mg DAILY PO 12/30/24 10:00 12/30/24 10:10 Lorazepam (Ativan Inj) 1 mg Q2HP PRN IV ALCOHOL WITHDRAWAL SYMPTOMS 12/29/24 17:15 12/29/24 21:43 Vancomycin HCl 250 ml @ 250 mls/hr Q1H IV 12/30/24 13:00 12/30/24 14:59 12/30/24 13:04 Vital Signs Vital Signs Date Time Temp Pulse Resp B/P (MAP) Pulse Ox O2 Delivery O2 Flow Rate FiO2 12/30/24 10:10 130/77 12/30/24 09:00 98.1 74 17 97 98.1 12/30/24 08:00 Room Air* 0 21 Physical Exam Dermatological: Skin is dry with mild erythema and some maceration around the wound site No gross deformities noted Mild non-pitting edema present bilaterally Distal toe superficial ulcerations with dry heme Vascular: Dorsalis pedis and posterior tibial pulses are 1+ bilaterally Capillary refill is under 2 seconds Skin temperature is warm bilaterally Neurologic: Protective sensation is absent on the plantar forefoot bilaterally Monofilament testing reveals decreased sensation in multiple plantar sites Musculoskeletal: Range of motion at the ankle and MTP joints is within normal limits. Strength is 5/5 in all tested muscle groups. Gait is antalgic due to offloading of the affected limb. Labs/Diagnostic Data Labs Test 12/30/24 11:38 12/30/24 04:44 12/29/24 13:05 12/29/24 11:50 Range/Units POC Glucose 156 H 70-106 mg/dl White Blood Count 7.0 # 4.4-10.8 10^3/uL Red Blood Count 3.36 L 4.5-5.90 10^6/uL Hemoglobin 11.6 L 13.5-17.5 g/dL Hematocrit 34.0 #L 41.0-53.0 % Mean Corpuscular Volume 101.1 H 80.0-100.0 fL Mean Corpuscular Hemoglobin 34.5 H 28.0-32.0 pg Mean Corpuscular Hemoglobin Concent 34.1 32.0-36.0 g/dL Red Cell Distribution Width 14.7 H 11.8-14.3 % Platelet Count 270 140-450 10^3/uL Mean Platelet Volume 8.7 6.9-10.8 fL Neutrophils (%) (Auto) 64.5 37.0-80.0 % Lymphocytes (%) (Auto) 19.8 10.0-50.0 % Monocytes (%) (Auto) 11.4 0.0-12.0 % Eosinophils (%) (Auto) 3.7 0.0-7.0 % Basophils (%) (Auto) 0.6 0.0-2.0 % Neutrophils # (Auto) 4.5 1.6-8.6 10 ^3/uL Lymphocytes # (Auto) 1.4 0.4-5.4 10 ^3/uL Monocytes # (Auto) 0.8 0-1.3 10 ^3/uL Eosinophils # (Auto) 0.3 0-0.8 10 ^3/uL Basophils # (Auto) 0 0-0.2 10 ^3/uL Nucleated Red Blood Cells 0.0 % Sodium Level 135 L 136-145 mmol/L Potassium Level 4.0 3.5-5.1 mmol/L Chloride Level 98 98-107 mmol/L Carbon Dioxide Level 24 20-31 mmol/L Anion Gap 13 5-15 Blood Urea Nitrogen 17 9-23 mg/dL Creatinine 1.12 0.700-1.30 mg/dL Glomerular Filtration Rate Calc 72 >90 mL/min BUN/Creatinine Ratio 15.2 10.0-20.0 Serum Glucose 89 74-106 mg/dL Hemoglobin A1c 5.4 <5.7 % A1C Calcium Level 9.1 8.7-10.4 mg/dL Total Bilirubin 0.4 0.2-1.0 mg/dL Aspartate Amino Transferase (AST) 31 13-40 U/L Alanine Aminotransferase (ALT) 12 7-40 U/L Alkaline Phosphatase 68 46-116 U/L Total Protein 6.4 5.7-8.2 g/dL Albumin 3.7 3.2-4.8 g/dL Random Vancomycin Level < 3.0 L 5-10 ug/mL Lactic Acid Level 1.9 0.4-2.0 mmol/L Troponin I High Sensitivity 16 </=54 ng/L Test 12/29/24 07:43 12/29/24 07:30 Range/Units Prothrombin Time 10.9 9.3-11.8 sec Prothrombin Time INR 1.03 0.9-1.15 Activated Partial Thromboplast Time 31.3 24.5-34.5 SEC Urine Color Light-yellow Yellow Urine Clarity Clear Clear Urine pH 5.0 5.0-9.0 Urine Specific [place] 1.017 1.001-1.035 Urine Protein Negative Negative Urine Ketones Negative Negative Urine Blood Negative Negative /uL Urine Nitrite Negative Negative Urine Bilirubin Negative Negative Urine Urobilinogen Normal Negative mg/dL Urine Leukocyte Esterase Negative Negative /uL Urine RBC 1 0 - 3 /hpf Urine Microscopic WBC 1 0-3 /HPF Urine Squamous Epithelial Cells Few <5 /hpf Urine Bacteria None seen None Seen /hpf Urine Glucose Normal Normal mg/dL Microbiology Date/Time Source Procedure Growth Status 12/29/24 13:05 Blood Blood Culture - Preliminary NO GROWTH AFTER 24 HOURS OF INCUBATION. Resulted Problems(with codes): (1) Generalized weakness (2) Cellulitis Plan/Recommendation ASSESSMENT: Patient is a 69 year old seen on the floor for a worsening ulcer PLAN: - The patients chart was reviewed, clinical findings were discussed with the patient, the etiologies of the conditions were discussed in detail, and a treatment plan was agreed to at this time, with both oral and written instructions provided. - no advanced imaging required - no surgical intervention - treat with p.o. Augmentin [phone] - follow up with me in a week or 2 - keep toes dry no bathing - no dressings required at this point All questions were answered and concerns addressed to the patient's satisfaction. The patient was given the phone number to the clinic and was told how to make contact with the clinic should any concerns or questions arise. Patient understands that if any questions or concerns arise prior to the next appointment, we should be contacted immediately. FOLLOW-UP: Continue to follow while inpatient Plan discussed with: Patient Visit Coding Podiatry Date of Service if different f: Dec 30, 2024 Billing Provider: ADITI GARCIA DPM Podiatry Common Visit Codes: CONSULT ONLY Podiatry Consult Codes: 12079-NC/OBS CONSLTJ NEW/EST HI 80 ADITI GARCIA DPM Dec 30, 2024 13:28
--- NOTE | 2024-12-30 13:34 | DVH ---
Bilateral lower extremity venous duplex Clinical History: Bilateral leg edema ruled out DVT Comparison: US BILAT LOW EXT ART DUPLEX on DOS: 12/29/24 Findings: Duplex Doppler evaluation of the deep venous systems of both lower extremities from the common femora l veins to the popliteal veins including color Doppler and spectral/pulsed waveform analysis was perf ormed. RIGHT SIDE: The right common femoral vein to the right superficial proximal vein was not visualized. The popliteal vein demonstrates appropriate compressibility and waveform variability. There is normal compressibility at the tibioperoneal trunk. LEFT SIDE: The common femoral vein demonstrates appropriate compressibility and waveform variability. There is compressibility/patency of the great saphenous vein at the proximal thigh. The femoral vein demonstrates appropriate compressibility and waveform variability. The deep femoral vein demonstrates appropriate compressibility and waveform variability. The popliteal vein demonstrates appropriate compressibility and waveform variability. There is normal compressibility at the tibioperoneal trunk. IMPRESSION: No right or left femoropopliteal venous thrombosis. If clinical concern/symptoms persist or worsen, short-interval follow-up study is suggested. END IMPRESSION:
[2024-12-30] MEDS: LACTULOSE 20Gm/30ML SOLN PO ONE (15:27)
[2024-12-31] VITALS (8 sets, daily range): BP systolic 127–145; BP diastolic 74–82; PULSE 67–87; RESP 16–19; TEMP 97.5–98.8; O2SAT 96–98
[2024-12-31] MEDS: ceFAZolin 2 GM/D5W50ml 50 ML IV SCH (01:08)
--- NOTE | 2024-12-31 08:14 | DVHPN2 ---
Reviewed: Care Plan, H&P, Labs, Medications, Previous Orders, Radiology Changes from previous H/P or p: No Changes Eyes: No Pain, No Vision change, No Conjunctivae inflammation, No Eyelid inflammation, No Other, No Redness ENT: No Ear pain, No Ear discharge, No Nose pain, No Nose discharge, No Nose congestion, No Mouth pain, No Mouth swelling, No Throat pain, No Throat swelling, No Other Cardiovascular: No Chest Pain, No Palpitations, No Orthopnea, No Paroxysmal Noc. Dyspnea; Edema (bilateral lower extremities); No Lt Headedness, No Other Respiratory: No Cough, No Dry, No Shortness of breath, No SOB with excertion, No Wheezing, No Hemoptysis, No Pleuritic Pain, No Sputum, No Other Gastrointestinal: No Nausea, No Vomiting, No Abdominal Pain, No Diarrhea, No Constipation, No Melena, No Hematochezia, No Other Genitourinary: No Dysuria, No Frequency, No Incontinence, No Hematuria, No Retention, No Other Musculoskeletal: No other, No neck pain, No shoulder pain, No arm pain, No back pain, No hand pain, No leg pain, No foot pain Skin: No Rash, No Lesions, No Jaundice, No Bruising; Other (bleeding/cuts to toes on bilateral feet) Objective Vitals Vital Signs Date Time Temp Pulse Resp B/P (MAP) Pulse Ox O2 Delivery O2 Flow Rate FiO2 12/31/24 05:00 98.8 78 19 134/75 (94) 98 98.8 12/30/24 20:00 Room Air* 0 21 Intake/Output Intake and Output 12/31/24 07:00 Intake Total 1740 ml Output Total 1150 ml Balance 590 ml Intake Oral 1090 ml IV Total 650 ml Output Urine Total 1150 ml # Voids 1 # Bowel Movements 3 Medications Current Medications Medications Dose Ordered Sig/Carloz Route Start Time Stop Time Status Last Admin Dose Admin Ondansetron HCl 4 mg Q4HP PRN IV 12/29/24 14:15 Docusate Sodium 100 mg BIDPRN PRN PO 12/29/24 14:15 Acetaminophen 650 mg Q6HP PRN PO 12/29/24 14:15 Diagnostic Test (Pha) 1 strip ACHS 12/29/24 17:00 12/31/24 06:09 1 STRIP Insulin Human Regular HS SC 12/29/24 22:00 Insulin Human Regular AC SC 12/29/24 17:00 12/30/24 18:38 3 UNITS Dextrose 50 ml UD PRN IV 12/29/24 14:30 Baclofen 10 mg TIDP PRN PO 12/29/24 14:30 12/29/24 21:45 10 MG Cholecalciferol 1,000 unit DAILY PO 12/30/24 10:00 12/30/24 10:11 1,000 UNIT Gabapentin 100 mg DAILY PO 12/30/24 10:00 12/30/24 10:09 100 MG Acetaminophen/ Hydrocodone Bitart 1 tab Q6HP PRN PO 12/29/24 14:30 12/31/24 05:27 1 TAB Patient Own Medication 1 tab DAILY PO 12/30/24 10:00 UNV Patient Own Medication 1 tab QHSP PRN PO 12/29/24 14:30 Thiamine HCl 100 mg DAILY PO 12/30/24 10:00 12/30/24 10:09 100 MG Folic Acid 1 mg DAILY PO 12/30/24 10:00 12/30/24 10:10 1 MG Multivitamins/ Minerals 1 tab DAILY PO 12/30/24 10:00 12/30/24 10:09 1 TAB Clindamycin Phosphate 50 ml @ 50 mls/hr Q8HR IV 12/29/24 22:00 12/31/24 05:22 50 MLS/HR Vancomycin HCl 0 ml @ 0 mls/hr UD IV 12/29/24 14:45 Losartan Potassium 100 mg DAILY PO 12/30/24 10:00 12/30/24 10:09 100 MG Hydrochlorothiazide 25 mg DAILY PO 12/30/24 10:00 12/30/24 10:10 25 MG Lorazepam 1 mg Q2HP PRN IV 12/29/24 17:15 12/29/24 21:43 1 MG Laboratory Results Laboratory Tests 12/30/24 04:44 12/31/24 06:25 Urinalysis Test 12/29/24 07:30 Urine Color Light-yellow (Yellow) Urine Clarity Clear (Clear) Urine pH 5.0 (5.0-9.0) Urine Specific [place] 1.017 (1.001-1.035) Urine Protein Negative (Negative) Urine Ketones Negative (Negative) Urine Blood Negative /uL (Negative) Urine Nitrite Negative (Negative) Urine Bilirubin Negative (Negative) Urine Urobilinogen Normal mg/dL (Negative) Urine Leukocyte Esterase Negative /uL (Negative) Urine RBC 1 /hpf (0 - 3) Urine Microscopic WBC 1 /HPF (0-3) Urine Squamous Epithelial Cells Few /hpf (<5) Urine Bacteria None seen /hpf (None Seen) Urine Glucose Normal mg/dL (Normal) Microbiology Microbiology Date/Time Source Procedure Growth Status 12/29/24 13:05 Blood Blood Culture - Preliminary NO GROWTH AFTER 24 HOURS OF INCUBATION. Resulted Labs and/or images reviewed: Labs reviewed by me, Image(s) reviewed by me Assessment/Plan Assessment/Plan Cellulitis, bilateral lower extremities and feet, clindamycin, vancomycin , consult for pharmaceutical scientist Dr. Agarwal appreciated, no surgical intervention Acute kidney injury, Uncontrolled diabetes: Insulin sliding scale Diabetic nephropathy neuropathy vasculopathy Chronic current alcohol abuse: Counseling, thiamine folic acid DVT ruled out Peripheral arterial disease ruled out Coronary artery disease status post stents Acute COPD exacerbation Hypertension Hard of hearing Medication noncompliance Lives with his son who is the biodiesel technology manager for [email or web address] Moderate malnutrition Moderate obesity BMI 45 Time spent 50 minutes Advanced care planning time 20 minutes Patient is full code Plan discussed with: Patient My Orders Orders - NIKKI LORA MD Procedure Category Date Status Time Bilat Lower Dvt US 12/30/24 Resulted 11:41 *Podiatry Consult CONS 12/30/24 Transmitted Stefano([facility]) 11:50 Dietary NOTICE 12/30/24 Transmitted Recommendations 14:00 Apply/Change Dressing DONY 12/30/24 In Process 11:58 Date of Service: Dec 31, 2024 Billing Provider: NIKKI LORA MD Common Visit Codes: [id number] INP/OBS CARE(HIGH) NIKKI LORA MD Dec 31, 2024 08:14
[2024-12-31] MEDS: VANCOMYCIN 1.25GM/250ML 250 ML IV SCH (09:34)
--- NOTE | 2024-12-31 19:37 | DVHSR ---
APPROVED REPORT EXAM: Two-dimensional and M-mode echocardiogram with Doppler and color Doppler. Blood Pressure: 133/67 mmHg INDICATION Cardiomegaly RISK FACTORS Height: 5'6", Weight: 281 DIMENSIONS LVDd5.0 (3.8-5.7cm)LA (2D)3.0 (1.9-4.0cm)Aortic Root4.0 (2.0-3.7cm) LVDs3.0 (2.5-4.0cm)LA (MM) (1.9-4.0cm)Aortic Cusp Exc2.0 (1.5-2.0cm) EF (%) 69.0 (55-70%)Rt. Atrium (1.9-4.0cm)Asc. Aorta3.7 cm IVSd1.2 (0.7-1.1cm)RV (D) (1.8-2.4cm) PWd1.4 (0.7-1.1cm) Mitral Valve MitralMitral Stenosis E/A ratio0.02D MVAcm2 Aortic Valve Aortic ValveAortic Stenosis LVOT Diameter2.4 (1.8-2.4cm)Doppler AVAcm2 Pulmonic Valve V20.87m/s Other Information Quality : Technically LimitedRhythm : Technically limited study due to body habitus. Conclusion MILD LVH AND MILD LV DIASTOLIC DYSFUNCTION LV EF IS 70% MODERATELY CALCIFIED AORTIC LEAFLETS AORTIC SCLEROSIS NORMAL MV,TV AND PV NO EFFUSION
[2024-12-31 19:55] LABS: INR 1.07 (0.9-1.15); Partial Thromboplastin Time 28.9 SEC (24.5-34.5); Prothrombin Time 11.3 sec (9.3-11.8)
--- NOTE | 2024-12-31 20:03 | DVH ---
ULTRASOUND ABDOMEN, LIMITED RIGHT UPPER QUADRANT: REASON FOR EXAM: evaluate for cirrhosis TECHNIQUE: Real-time sector scans in the transverse and longitudinal planes were obtained through th e right upper quadrant of the abdomen. FINDINGS: Evaluation is difficult due to patient body habitus and bowel gas. The left lobe of the josé er is not visualized. The liver is borderline enlarged at 17.4 cm in length. The liver is diffusely echogenic. No definite nodularity is identified at the liver surface. There is hepatopetal flow in t he portal vein. There is no intrahepatic nor extrahepatic biliary ductal dilatation. The gallbladder is not seen. There is no sonographic Alcala's sign. The pancreas is obscured by bowel gas. The right kidney measures 12.2 cm. No hydronephrosis or nephrolithiasis is identified. There is no evidence of right renal mass or cyst. The visualized portions of the abdominal aorta demonstrate no evidence of aneurysmal dilatation. The visualized inferior vena cava is unremarkable. There is no free fluid identified in the right upper quadrant. IMPRESSION: Borderline hepatomegaly. The liver is diffusely echogenic which may be secondary to steatosis or anot her diffuse hepatic process. No definite surface nodularity is identified to indicate cirrhosis. Liudmila palomino clinically and with liver function tests.
[2024-12-31] MEDS ORDERED: ceFAZolin 2 GM/D5W50ml 50 ML IV SCH (22:00)
[2025-01-01] VITALS (8 sets, daily range): BP systolic 126–140; BP diastolic 56–86; PULSE 60–81; RESP 16–20; TEMP 86–98.5; O2SAT 96–99
[2025-01-01 06:36] LABS: Hemoglobin 11.3 g/dL (13.5-17.5); Nucleated Red Blood Cells % 0.0 %
[2025-01-01 06:40] LABS: Hematocrit 33.1 % (41.0-53.0); Mean Corpuscular Hemoglobin 34.5 pg (28.0-32.0); Mean Corpuscular Volume 101.5 fL (80.0-100.0)
--- NOTE | 2025-01-01 09:54 | DVHPN2 ---
Reviewed: Care Plan, H&P, Labs, Medications, Previous Orders, Radiology Changes from previous H/P or p: No Changes Eyes: No Pain, No Vision change, No Conjunctivae inflammation, No Eyelid inflammation, No Other, No Redness ENT: No Ear pain, No Ear discharge, No Nose pain, No Nose discharge, No Nose congestion, No Mouth pain, No Mouth swelling, No Throat pain, No Throat swelling, No Other Cardiovascular: No Chest Pain, No Palpitations, No Orthopnea, No Paroxysmal Noc. Dyspnea; Edema (bilateral lower extremities); No Lt Headedness, No Other Respiratory: No Cough, No Dry, No Shortness of breath, No SOB with excertion, No Wheezing, No Hemoptysis, No Pleuritic Pain, No Sputum, No Other Gastrointestinal: No Nausea, No Vomiting, No Abdominal Pain, No Diarrhea, No Constipation, No Melena, No Hematochezia, No Other Genitourinary: No Dysuria, No Frequency, No Incontinence, No Hematuria, No Retention, No Other Musculoskeletal: No other, No neck pain, No shoulder pain, No arm pain, No back pain, No hand pain, No leg pain, No foot pain Skin: No Rash, No Lesions, No Jaundice, No Bruising; Other (bleeding/cuts to toes on bilateral feet) Objective Vitals Vital Signs Date Time Temp Pulse Resp B/P (MAP) Pulse Ox O2 Delivery O2 Flow Rate FiO2 01/01/25 05:00 98.2 81 20 140/56 (84) 98 98.2 12/31/24 20:00 Room Air* 0 21 Intake/Output Intake and Output 01/01/25 07:00 Intake Total 2200 ml Output Total 1875 ml Balance 325 ml Intake Oral 1850 ml IV Total 350 ml Output Urine Total 1875 ml Medications Current Medications Medications Dose Ordered Sig/Carloz Route Start Time Stop Time Status Last Admin Dose Admin Ondansetron HCl 4 mg Q4HP PRN IV 12/29/24 14:15 Docusate Sodium 100 mg BIDPRN PRN PO 12/29/24 14:15 Acetaminophen 650 mg Q6HP PRN PO 12/29/24 14:15 Diagnostic Test (Pha) 1 strip ACHS 12/29/24 17:00 01/01/25 06:15 1 STRIP Insulin Human Regular HS SC 12/29/24 22:00 12/31/24 22:32 2 UNITS Insulin Human Regular AC SC 12/29/24 17:00 01/01/25 06:12 2 UNITS Dextrose 50 ml UD PRN IV 12/29/24 14:30 Baclofen 10 mg TIDP PRN PO 12/29/24 14:30 12/29/24 21:45 10 MG Cholecalciferol 1,000 unit DAILY PO 12/30/24 10:00 12/31/24 09:27 1,000 UNIT Gabapentin 100 mg DAILY PO 12/30/24 10:00 12/31/24 09:24 100 MG Acetaminophen/ Hydrocodone Bitart 1 tab Q6HP PRN PO 12/29/24 14:30 01/01/25 02:05 1 TAB Patient Own Medication 1 tab DAILY PO 12/30/24 10:00 UNV Patient Own Medication 1 tab QHSP PRN PO 12/29/24 14:30 Thiamine HCl 100 mg DAILY PO 12/30/24 10:00 12/31/24 09:28 100 MG Folic Acid 1 mg DAILY PO 12/30/24 10:00 12/31/24 09:24 1 MG Multivitamins/ Minerals 1 tab DAILY PO 12/30/24 10:00 12/31/24 09:23 1 TAB Clindamycin Phosphate 50 ml @ 50 mls/hr Q8HR IV 12/29/24 22:00 12/31/24 23:39 50 MLS/HR Vancomycin HCl 0 ml @ 0 mls/hr UD IV 12/29/24 14:45 Losartan Potassium 100 mg DAILY PO 12/30/24 10:00 12/31/24 09:28 100 MG Hydrochlorothiazide 25 mg DAILY PO 12/30/24 10:00 12/31/24 09:26 25 MG Lorazepam 1 mg Q2HP PRN IV 12/29/24 17:15 12/29/24 21:43 1 MG Vancomycin HCl 250 ml @ 200 mls/hr Q12H IV 12/31/24 09:00 12/31/24 21:49 200 MLS/HR Cefazolin Sodium/ Dextrose 50 ml @ 50 mls/hr Q8H IV 12/31/24 00:30 01/01/25 01:08 50 MLS/HR Laboratory Results Laboratory Tests 12/30/24 04:44 01/01/25 04:58 Coagulation Test 12/31/24 19:26 Prothrombin Time 11.3 sec (9.3-11.8) Prothrombin Time INR 1.07 (0.9-1.15) Activated Partial Thromboplast Time 28.9 SEC (24.5-34.5) Urinalysis Test 12/29/24 07:30 Urine Color Light-yellow (Yellow) Urine Clarity Clear (Clear) Urine pH 5.0 (5.0-9.0) Urine Specific [place] 1.017 (1.001-1.035) Urine Protein Negative (Negative) Urine Ketones Negative (Negative) Urine Blood Negative /uL (Negative) Urine Nitrite Negative (Negative) Urine Bilirubin Negative (Negative) Urine Urobilinogen Normal mg/dL (Negative) Urine Leukocyte Esterase Negative /uL (Negative) Urine RBC 1 /hpf (0 - 3) Urine Microscopic WBC 1 /HPF (0-3) Urine Squamous Epithelial Cells Few /hpf (<5) Urine Bacteria None seen /hpf (None Seen) Urine Glucose Normal mg/dL (Normal) Microbiology Microbiology Date/Time Source Procedure Growth Status 12/29/24 13:05 Blood Blood Culture - Preliminary NO GROWTH AFTER 48 HOURS OF INCUBATION. Resulted Labs and/or images reviewed: Labs reviewed by me, Image(s) reviewed by me Assessment/Plan Assessment/Plan Cellulitis, bilateral lower extremities and feet, clindamycin, vancomycin , consult for product analyst Dr. Agarwal appreciated, no surgical intervention Acute kidney injury, Uncontrolled diabetes: Insulin sliding scale Diabetic nephropathy neuropathy vasculopathy Chronic current alcohol abuse: Counseling, thiamine folic acid DVT ruled out Peripheral arterial disease ruled out Coronary artery disease status post stents Acute COPD exacerbation Hypertension Hard of hearing Medication noncompliance PICC line ordered Blood cultures negative Lives with his son who is the supply chain development manager for [employer] Moderate malnutrition Moderate obesity BMI 45 Time spent 50 minutes Advanced care planning time 20 minutes Patient is full code Plan discussed with: Patient Date of Service: Jan 01, 2025 Billing Provider: NIKKI LORA MD Common Visit Codes: [id number] INP/OBS CARE(HIGH) NIKKI LORA MD Jan 01, 2025 09:54
--- NOTE | 2025-01-01 13:53 | DVHPN2 ---
Consult Progress Note Date Seen: Dec 31, 2024 Objective vital signs Vital Sign Date Time Temp Pulse Resp B/P (MAP) Pulse Ox O2 Delivery O2 Flow Rate FiO2 01/01/25 13:00 98.1 79 18 135/86 (102) 96 98.1 12/31/24 20:00 Room Air* 0 21 Total Intake and Output 12/31/24 12/31/24 01/01/25 15:00 23:00 07:00 Intake Total 450 ml 1250 ml 500 ml Output Total 675 ml 1200 ml Balance 450 ml 575 ml -700 ml medications Current Medications Medications Dose Ordered Sig/Carloz Route Start Time Stop Time Status Last Admin Dose Admin Ondansetron HCl 4 mg Q4HP PRN IV 12/29/24 14:15 Docusate Sodium 100 mg BIDPRN PRN PO 12/29/24 14:15 Acetaminophen 650 mg Q6HP PRN PO 12/29/24 14:15 Diagnostic Test (Pha) 1 strip ACHS 12/29/24 17:00 01/01/25 11:49 1 STRIP Insulin Human Regular HS SC 12/29/24 22:00 12/31/24 22:32 2 UNITS Insulin Human Regular AC SC 12/29/24 17:00 01/01/25 11:56 2 UNITS Dextrose 50 ml UD PRN IV 12/29/24 14:30 Baclofen 10 mg TIDP PRN PO 12/29/24 14:30 12/29/24 21:45 10 MG Cholecalciferol 1,000 unit DAILY PO 12/30/24 10:00 01/01/25 10:25 1,000 UNIT Gabapentin 100 mg DAILY PO 12/30/24 10:00 01/01/25 10:25 100 MG Acetaminophen/ Hydrocodone Bitart 1 tab Q6HP PRN PO 12/29/24 14:30 01/01/25 12:01 1 TAB Patient Own Medication 1 tab DAILY PO 12/30/24 10:00 UNV Patient Own Medication 1 tab QHSP PRN PO 12/29/24 14:30 Thiamine HCl 100 mg DAILY PO 12/30/24 10:00 01/01/25 10:25 100 MG Folic Acid 1 mg DAILY PO 12/30/24 10:00 01/01/25 10:24 1 MG Multivitamins/ Minerals 1 tab DAILY PO 12/30/24 10:00 01/01/25 10:24 1 TAB Clindamycin Phosphate 50 ml @ 50 mls/hr Q8HR IV 12/29/24 22:00 12/31/24 23:39 50 MLS/HR Vancomycin HCl 0 ml @ 0 mls/hr UD IV 12/29/24 14:45 Losartan Potassium 100 mg DAILY PO 12/30/24 10:00 01/01/25 10:24 100 MG Hydrochlorothiazide 25 mg DAILY PO 12/30/24 10:00 01/01/25 10:26 25 MG Lorazepam 1 mg Q2HP PRN IV 12/29/24 17:15 12/29/24 21:43 1 MG Vancomycin HCl 250 ml @ 200 mls/hr Q12H IV 12/31/24 09:00 01/01/25 11:48 200 MLS/HR Cefazolin Sodium/ Dextrose 50 ml @ 50 mls/hr Q8H IV 12/31/24 00:30 01/01/25 01:08 50 MLS/HR laboratory and microbiology Laboratory Tests 01/01/25 04:58 12/30/24 04:44 Test 12/30/24 04:44 Range/Units Serum Glucose 89 74-106 mg/dL Problem List/Assessment/Plan Problem List/Assessment/Plan Stevie Sahu is a 69-year-old male with past medical history of diabetes, coronary artery disease, hard of hearing, obesity, and hypertension, who came to the hospital due to bilateral feet pain. Patient has swelling to his bilateral lower extremities that he states has been for for years. His bilateral feet have small wounds and bleeding to the toes that he states is new and why he came to the hospital. Patient states he has been working on losing weight. He is on Mounjaro. Assessment # Cellulitis, bilateral lower extremities # Chronic venous insufficiency # Acute kidney injury # Type 2 diabetes mellitus # Diabetic neuropathy # essential hypertension # Grade 3 obesity # alcohol abuse # Coronary artery disease status post stents Plan Follow PT INR, liver ultrasound to rule out cirrhosis Follow vitamin B9, B12 and thiamine levels. Supplement if needed. Podiatry follow-up Start the patient on cefazolin. Case Discussed with Dr. Osullivan Infectious diseases we will continue to follow Plan discussed with patient Plan discussed with: Patient Dietary Evaluation Review Comments: Nutrition Recommendation 1) CCHO 75gm + cardiac diet 2) Flavio 1 pk BID 3) Refer Mapping Editor for diabetes education Expected Outcomes/Goals: Wound to improve Fu 3-5 days CHAPO LAEJO RESIDENT Jan 01, 2025 13:52
[2025-01-01 16:30] LABS: COVID19 ANTIGEN SOFIA FIA NEGATIVE (NEGATIVE)
[2025-01-02] VITALS (8 sets, daily range): BP systolic 127–159; BP diastolic 66–81; PULSE 66–100; RESP 16–20; TEMP 97.5–98.1; O2SAT 95–99
--- NOTE | 2025-01-02 08:03 | DVHPN2 ---
Reviewed: Care Plan, H&P, Labs, Medications, Previous Orders, Radiology Changes from previous H/P or p: No Changes Eyes: No Pain, No Vision change, No Conjunctivae inflammation, No Eyelid inflammation, No Other, No Redness ENT: No Ear pain, No Ear discharge, No Nose pain, No Nose discharge, No Nose congestion, No Mouth pain, No Mouth swelling, No Throat pain, No Throat swelling, No Other Cardiovascular: No Chest Pain, No Palpitations, No Orthopnea, No Paroxysmal Noc. Dyspnea; Edema (bilateral lower extremities); No Lt Headedness, No Other Respiratory: No Cough, No Dry, No Shortness of breath, No SOB with excertion, No Wheezing, No Hemoptysis, No Pleuritic Pain, No Sputum, No Other Gastrointestinal: No Nausea, No Vomiting, No Abdominal Pain, No Diarrhea, No Constipation, No Melena, No Hematochezia, No Other Genitourinary: No Dysuria, No Frequency, No Incontinence, No Hematuria, No Retention, No Other Musculoskeletal: No other, No neck pain, No shoulder pain, No arm pain, No back pain, No hand pain, No leg pain, No foot pain Skin: No Rash, No Lesions, No Jaundice, No Bruising; Other (bleeding/cuts to toes on bilateral feet) Objective Vitals Vital Signs Date Time Temp Pulse Resp B/P (MAP) Pulse Ox O2 Delivery O2 Flow Rate FiO2 01/02/25 05:00 97.5 66 18 127/81 (96) 99 97.5 01/01/25 20:00 Room Air* 0 21 Intake/Output Intake and Output 01/02/25 07:00 Intake Total 1190 ml Output Total 1550 ml Balance -360 ml Intake Oral 840 ml IV Total 350 ml Output Urine Total 1550 ml Medications Current Medications Medications Dose Ordered Sig/Carloz Route Start Time Stop Time Status Last Admin Dose Admin Ondansetron HCl 4 mg Q4HP PRN IV 12/29/24 14:15 Docusate Sodium 100 mg BIDPRN PRN PO 12/29/24 14:15 Acetaminophen 650 mg Q6HP PRN PO 12/29/24 14:15 Diagnostic Test (Pha) 1 strip ACHS 12/29/24 17:00 01/02/25 06:28 1 STRIP Insulin Human Regular HS SC 12/29/24 22:00 12/31/24 22:32 2 UNITS Insulin Human Regular AC SC 12/29/24 17:00 01/01/25 17:40 6 UNITS Dextrose 50 ml UD PRN IV 12/29/24 14:30 Baclofen 10 mg TIDP PRN PO 12/29/24 14:30 12/29/24 21:45 10 MG Cholecalciferol 1,000 unit DAILY PO 12/30/24 10:00 01/01/25 10:25 1,000 UNIT Gabapentin 100 mg DAILY PO 12/30/24 10:00 01/01/25 10:25 100 MG Acetaminophen/ Hydrocodone Bitart 1 tab Q6HP PRN PO 12/29/24 14:30 01/02/25 01:05 1 TAB Patient Own Medication 1 tab DAILY PO 12/30/24 10:00 UNV Patient Own Medication 1 tab QHSP PRN PO 12/29/24 14:30 Thiamine HCl 100 mg DAILY PO 12/30/24 10:00 01/01/25 10:25 100 MG Folic Acid 1 mg DAILY PO 12/30/24 10:00 01/01/25 10:24 1 MG Multivitamins/ Minerals 1 tab DAILY PO 12/30/24 10:00 01/01/25 10:24 1 TAB Clindamycin Phosphate 50 ml @ 50 mls/hr Q8HR IV 12/29/24 22:00 01/02/25 06:16 50 MLS/HR Vancomycin HCl 0 ml @ 0 mls/hr UD IV 12/29/24 14:45 Losartan Potassium 100 mg DAILY PO 12/30/24 10:00 01/01/25 10:24 100 MG Hydrochlorothiazide 25 mg DAILY PO 12/30/24 10:00 01/01/25 10:26 25 MG Lorazepam 1 mg Q2HP PRN IV 12/29/24 17:15 12/29/24 21:43 1 MG Vancomycin HCl 250 ml @ 200 mls/hr Q12H IV 12/31/24 09:00 01/01/25 11:48 200 MLS/HR Cefazolin Sodium/ Dextrose 50 ml @ 50 mls/hr Q8H IV 12/31/24 00:30 01/01/25 01:08 50 MLS/HR Laboratory Results Laboratory Tests 12/30/24 04:44 01/01/25 04:58 Urinalysis Test 12/29/24 07:30 Urine Color Light-yellow (Yellow) Urine Clarity Clear (Clear) Urine pH 5.0 (5.0-9.0) Urine Specific [place] 1.017 (1.001-1.035) Urine Protein Negative (Negative) Urine Ketones Negative (Negative) Urine Blood Negative /uL (Negative) Urine Nitrite Negative (Negative) Urine Bilirubin Negative (Negative) Urine Urobilinogen Normal mg/dL (Negative) Urine Leukocyte Esterase Negative /uL (Negative) Urine RBC 1 /hpf (0 - 3) Urine Microscopic WBC 1 /HPF (0-3) Urine Squamous Epithelial Cells Few /hpf (<5) Urine Bacteria None seen /hpf (None Seen) Urine Glucose Normal mg/dL (Normal) Microbiology Microbiology Date/Time Source Procedure Growth Status 12/29/24 13:05 Blood Blood Culture - Preliminary NO GROWTH AFTER 72 HOURS OF INCUBATION. Resulted Labs and/or images reviewed: Labs reviewed by me, Image(s) reviewed by me Assessment/Plan Assessment/Plan Cellulitis, bilateral lower extremities and feet, DC vancomycin and clindamycin start Ancef 2 g IV q.8 hours per recommendation of ID Dr. Osullivan which he will continue in the residential for one month , consult for wild life photographer Dr. Agarwal appreciated, no surgical intervention Acute kidney injury, Uncontrolled diabetes: Insulin sliding scale Diabetic nephropathy neuropathy vasculopathy Chronic current alcohol abuse: Counseling, thiamine folic acid DVT ruled out Peripheral arterial disease ruled out Coronary artery disease status post stents Acute COPD exacerbation Hypertension Hard of hearing Medication noncompliance PICC line ordered Blood cultures negative Lives with his son who is the assistant manager of operations for [employer] Moderate malnutrition Moderate obesity BMI 45 Time spent 50 minutes Advanced care planning time 20 minutes Patient is full code Plan discussed with: Patient My Orders Orders - NIKKI LORA MD Procedure Category Date Status Time * Picc Line Consult CONS 01/01/25 Transmitted 09:44 * Trackmobile Operator CONS 01/01/25 Transmitted Consult Communication Order ORDERS 01/01/25 Transmitted 09:54 Date of Service: Jan 02, 2025 Billing Provider: NIKKI LORA MD Common Visit Codes: [id number] INP/OBS CARE(HIGH) NIKKI LORA MD Jan 02, 2025 08:03
--- NOTE | 2025-01-02 08:19 | DVHDS2 ---
Discharge Summary Date of Admission Dec 29, 2024 at 14:08 Date of Discharge: Jan 02, 2025 Admitting Diagnosis Cellulitis bilateral lower extremities Wounds: Cellulitis bilateral lower extremities Labs/Diagnostic Data: Laboratory Results Test 01/02/25 05:40 01/01/25 19:47 01/01/25 04:58 01/01/25 00:00 POC Glucose 122 mg/dl (70-106) Vancomycin Level Trough 26.4 ug/mL (5-10) White Blood Count 7.8 10^3/uL (4.4-10.8) Red Blood Count 3.26 10^6/uL (4.5-5.90) Hemoglobin 11.3 g/dL (13.5-17.5) Hematocrit 33.1 % (41.0-53.0) Mean Corpuscular Volume 101.5 fL (80.0-100.0) Mean Corpuscular Hemoglobin 34.5 pg (28.0-32.0) Mean Corpuscular Hemoglobin Concent 34.0 g/dL (32.0-36.0) Red Cell Distribution Width 15.3 % (11.8-14.3) Platelet Count 307 10^3/uL (140-450) Mean Platelet Volume 8.5 fL (6.9-10.8) Neutrophils (%) (Auto) 67.7 % (37.0-80.0) Lymphocytes (%) (Auto) 19.8 % (10.0-50.0) Monocytes (%) (Auto) 9.2 % (0.0-12.0) Eosinophils (%) (Auto) 2.8 % (0.0-7.0) Basophils (%) (Auto) 0.5 % (0.0-2.0) Neutrophils # (Auto) 5.3 10 ^3/uL (1.6-8.6) Lymphocytes # (Auto) 1.6 10 ^3/uL (0.4-5.4) Monocytes # (Auto) 0.7 10 ^3/uL (0-1.3) Eosinophils # (Auto) 0.2 10 ^3/uL (0-0.8) Basophils # (Auto) 0 10 ^3/uL (0-0.2) Nucleated Red Blood Cells 0.0 % Creatinine 0.80 mg/dL (0.700-1.30) Glomerular Filtration Rate Calc 96 mL/min (>90) SARS-CoV-2 Antigen (Rapid) Negative (NEGATIVE) Test 12/31/24 19:26 12/31/24 06:25 12/30/24 04:44 12/29/24 13:05 Prothrombin Time 11.3 sec (9.3-11.8) Prothrombin Time INR 1.07 (0.9-1.15) Activated Partial Thromboplast Time 28.9 SEC (24.5-34.5) Vitamin B12 Level 295 pg/mL (211-911) Folic Acid 13.46 ng/mL (>5.38) Random Vancomycin Level 10.8 ug/mL (5-10) Sodium Level 135 mmol/L (136-145) Potassium Level 4.0 mmol/L (3.5-5.1) Chloride Level 98 mmol/L (98-107) Carbon Dioxide Level 24 mmol/L (20-31) Anion Gap 13 (5-15) Blood Urea Nitrogen 17 mg/dL (9-23) BUN/Creatinine Ratio 15.2 (10.0-20.0) Serum Glucose 89 mg/dL (74-106) Hemoglobin A1c 5.4 % A1C (<5.7) Calcium Level 9.1 mg/dL (8.7-10.4) Total Bilirubin 0.4 mg/dL (0.2-1.0) Aspartate Amino Transferase (AST) 31 U/L (13-40) Alanine Aminotransferase (ALT) 12 U/L (7-40) Alkaline Phosphatase 68 U/L (46-116) Total Protein 6.4 g/dL (5.7-8.2) Albumin 3.7 g/dL (3.2-4.8) Lactic Acid Level 1.9 mmol/L (0.4-2.0) Test 12/29/24 11:50 12/29/24 07:30 Troponin I High Sensitivity 16 ng/L (</=54) Urine Color Light-yellow (Yellow) Urine Clarity Clear (Clear) Urine pH 5.0 (5.0-9.0) Urine Specific [place] 1.017 (1.001-1.035) Urine Protein Negative (Negative) Urine Ketones Negative (Negative) Urine Blood Negative /uL (Negative) Urine Nitrite Negative (Negative) Urine Bilirubin Negative (Negative) Urine Urobilinogen Normal mg/dL (Negative) Urine Leukocyte Esterase Negative /uL (Negative) Urine RBC 1 /hpf (0 - 3) Urine Microscopic WBC 1 /HPF (0-3) Urine Squamous Epithelial Cells Few /hpf (<5) Urine Bacteria None seen /hpf (None Seen) Urine Glucose Normal mg/dL (Normal) Other Laboratory Tests 01/01/25 04:58 12/30/24 04:44 Brief Hx & Hospital Course: 69-year-old male with a history of COPD hypotension very hard of hearing chronic current alcohol abuse coronary artery disease status post stent diabetes came in for pain and swelling and redness for bilateral lower extremities found to have cellulitis of the lower extremities and feet. Started on vancomycin and clindamycin ID consult by Dr. Teran the antibiotics changed to Ancef 2 g IV q.8 hours. Seen by podiatric Dr. Story advised no surgical intervention comorbid conditions appropriately addressed given banana bag for the alcohol abuse . Patient is improving. Peripheral artery disease ruled out. DVT ruled out. Patient is being discharged to halfway facility to receive Ancef for one month intravenously has a PICC line in place . Discussed with the patient's son Thien on the phone and advised him to find a halfway facility [place] with the patient's daughter works as a nurse as per patient's wishes, Consults/Reason for consult ID Dr. Osullivan Podtomy Dr Agarwal Operations or Procedures Venous ultrasound Arterial ultrasound Condition at Discharge: Fair Final Diagnosis/Problems List Cellulitis, bilateral lower extremities and feet, DC vancomycin and clindamycin start Ancef 2 g IV q.8 hours per recommendation of ID Dr. Osullivan which he will continue in the residential for one month , consult for mc kay stitcher Dr. Agarwal appreciated, no surgical intervention Acute kidney injury, Uncontrolled diabetes: Insulin sliding scale Diabetic nephropathy neuropathy vasculopathy Chronic current alcohol abuse: Counseling, thiamine folic acid DVT ruled out Peripheral arterial disease ruled out Coronary artery disease status post stents Acute COPD exacerbation Hypertension Hard of hearing Medication noncompliance PICC line ordered Blood cultures negative Discharge Disposition: Detention Facility Discharge Instruct/Medications Diet: Cardiac 2g Na,low cholest Activity: Light activity Follow Up/Referral: Follow up with the residential Medications: see list Ancef 2 g IV q.8 hours for one month for cellulitis lower extremities Scheduled Cholecalciferol (Gnp Vitamin D), 1 TAB PO DAILY, (Reported) Gabapentin (Gabapentin), 1 CAP PO DAILY, (Reported) Losartan Potassium & Hydrochlo (Losartan Potassium/Hydroc), 1 TAB PO DAILY, (Reported) Metformin Hydrochloride (Metformin Hcl), 2 TAB PO BID, (Reported) Oxycodone W/ Acetaminophen (Percocet 5/325MG), 10 TAB PO QID, (Reported) Scheduled PRN Zolpidem Tartrate (Zolpidem Tartrate Er), 1 TAB PO QHSP PRN, (Reported) Discontinued Medications Baclofen (Baclofen), 1 TAB PO TIDP PRN, (Reported) Hydrocodone-Acetaminophen (Hydrocodone Bitartrate/AC 10-325 mg), 1 TAB PO Q6HP PRN, (Reported) 39 (Time taken for discharge summary 39 minutes) Discharge Statement: "Patient was advised to return to the ER or call 911 if any headaches, dizziness, shortness of breath, chest pain, abdominal pain, bleeding, fevers, or worsening of medical condition. Patient was counseled about treatment plan, medications, possible side effects, patientverbalized understanding. All questions were answered to the best of my ability. This discharge took greater then 30 minutes in planning, reviewing documentation, counseling the patient, and discussing with other team members." ASSESSMENT ASSESSMENT Hospital Course Improved Assessment Cellulitis, bilateral lower extremities and feet, DC vancomycin and clindamycin start Ancef 2 g IV q.8 hours per recommendation of ID Dr. Osullivan which he will continue in the residential for one month , consult for mc kay stitcher Dr. Agarwal appreciated, no surgical intervention Acute kidney injury, Uncontrolled diabetes: Insulin sliding scale Diabetic nephropathy neuropathy vasculopathy Chronic current alcohol abuse: Counseling, thiamine folic acid DVT ruled out Peripheral arterial disease ruled out Coronary artery disease status post stents Acute COPD exacerbation Hypertension Hard of hearing Medication noncompliance PICC line ordered Blood cultures negative Date of Service: Jan 02, 2025 Billing Provider: NIKKI LORA MD Common Visit Codes: [id number] INP/OBS CARE(HIGH), [id number] DISCH DAY >30min NIKKI LORA MD Jan 02, 2025 08:19
[2025-01-02] MEDS: LIDOCAINE 1% (LOCAL ANESTH.) PF 5ml SDV ID ONE (10:53)
--- NOTE | 2025-01-02 11:56 | DVH ---
AP portable chest CLINICAL INDICATION: PICC LINE PLACEMENT. Comparison: 12/29/2024 FINDINGS: Heart size is normal. PICC line catheter tip in the mid superior vena cava. No infiltrates or effusions IMPRESSION: 1. PICC line catheter tip in the mid superior vena cava
--- NOTE | 2025-01-02 18:48 | DVHPN2 ---
Consult Progress Note Objective vital signs Vital Sign Date Time Temp Pulse Resp B/P (MAP) Pulse Ox O2 Delivery O2 Flow Rate FiO2 01/02/25 17:00 97.7 100 18 132/66 (88) 95 97.7 01/02/25 08:00 Room Air* 0 21 Total Intake and Output 01/01/25 01/01/25 01/02/25 15:00 23:00 07:00 Intake Total 250 ml 700 ml 240 ml Output Total 600 ml 950 ml Balance 250 ml 100 ml -710 ml medications Current Medications Medications Dose Ordered Sig/Carloz Route Start Time Stop Time Status Last Admin Dose Admin Ondansetron HCl 4 mg Q4HP PRN IV 12/29/24 14:15 Docusate Sodium 100 mg BIDPRN PRN PO 12/29/24 14:15 Acetaminophen 650 mg Q6HP PRN PO 12/29/24 14:15 Diagnostic Test (Pha) 1 strip ACHS 12/29/24 17:00 01/02/25 16:46 1 STRIP Insulin Human Regular HS SC 12/29/24 22:00 12/31/24 22:32 2 UNITS Insulin Human Regular AC SC 12/29/24 17:00 01/02/25 17:03 6 UNITS Dextrose 50 ml UD PRN IV 12/29/24 14:30 Baclofen 10 mg TIDP PRN PO 12/29/24 14:30 12/29/24 21:45 10 MG Cholecalciferol 1,000 unit DAILY PO 12/30/24 10:00 01/02/25 08:47 1,000 UNIT Gabapentin 100 mg DAILY PO 12/30/24 10:00 01/02/25 08:46 100 MG Acetaminophen/ Hydrocodone Bitart 1 tab Q6HP PRN PO 12/29/24 14:30 01/02/25 14:20 1 TAB Patient Own Medication 1 tab DAILY PO 12/30/24 10:00 UNV Patient Own Medication 1 tab QHSP PRN PO 12/29/24 14:30 Thiamine HCl 100 mg DAILY PO 12/30/24 10:00 01/02/25 08:47 100 MG Folic Acid 1 mg DAILY PO 12/30/24 10:00 01/02/25 08:47 1 MG Multivitamins/ Minerals 1 tab DAILY PO 12/30/24 10:00 01/02/25 08:45 1 TAB Losartan Potassium 100 mg DAILY PO 12/30/24 10:00 01/02/25 08:46 100 MG Hydrochlorothiazide 25 mg DAILY PO 12/30/24 10:00 01/02/25 08:46 25 MG Lorazepam 1 mg Q2HP PRN IV 12/29/24 17:15 12/29/24 21:43 1 MG Cefazolin Sodium/ Dextrose 50 ml @ 50 mls/hr Q8H IV 12/31/24 00:30 01/02/25 16:53 50 MLS/HR Sodium Chloride 10 ml QSHIFT@, IV 01/02/25 22:00 laboratory and microbiology Laboratory Tests 01/01/25 04:58 12/30/24 04:44 Test 12/30/24 04:44 Range/Units Serum Glucose 89 74-106 mg/dL Problem List/Assessment/Plan Problem List/Assessment/Plan continue Ancef can switch keflex 1000mg po tid x 5 days when ready for dc Plan discussed with: Patient Dietary Evaluation Review Comments: Nutrition Recommendation 1) CCHO 75gm + cardiac diet 2) Flavio 1 pk BID 3) Refer Coil Assembler for diabetes education Expected Outcomes/Goals: Wound to improve Fu 3-5 days THERESE COOMBS MD Jan 02, 2025 18:48
[2025-01-02] MEDS: SODIUM CHLOR 0.9% PF (SALINE LOCK) 10ML VIAL/SYR IV SCH (21:53)
[2025-01-03] VITALS (7 sets, daily range): BP systolic 118–139; BP diastolic 56–89; PULSE 70–79; RESP 16–20; TEMP 97.6–98.1; O2SAT 96–99
--- NOTE | 2025-01-03 08:49 | DVHPN2 ---
Reviewed: Care Plan, H&P, Labs, Medications, Previous Orders, Radiology Changes from previous H/P or p: No Changes Eyes: No Pain, No Vision change, No Conjunctivae inflammation, No Eyelid inflammation, No Other, No Redness ENT: No Ear pain, No Ear discharge, No Nose pain, No Nose discharge, No Nose congestion, No Mouth pain, No Mouth swelling, No Throat pain, No Throat swelling, No Other Cardiovascular: No Chest Pain, No Palpitations, No Orthopnea, No Paroxysmal Noc. Dyspnea; Edema (bilateral lower extremities); No Lt Headedness, No Other Respiratory: No Cough, No Dry, No Shortness of breath, No SOB with excertion, No Wheezing, No Hemoptysis, No Pleuritic Pain, No Sputum, No Other Gastrointestinal: No Nausea, No Vomiting, No Abdominal Pain, No Diarrhea, No Constipation, No Melena, No Hematochezia, No Other Genitourinary: No Dysuria, No Frequency, No Incontinence, No Hematuria, No Retention, No Other Musculoskeletal: No other, No neck pain, No shoulder pain, No arm pain, No back pain, No hand pain, No leg pain, No foot pain Skin: No Rash, No Lesions, No Jaundice, No Bruising; Other (bleeding/cuts to toes on bilateral feet) Objective Vitals Vital Signs Date Time Temp Pulse Resp B/P (MAP) Pulse Ox O2 Delivery O2 Flow Rate FiO2 01/03/25 05:00 98.1 72 20 118/84 (95) 97 98.1 01/02/25 20:00 Room Air* 0 21 Intake/Output Intake and Output 01/03/25 07:00 Intake Total 2120 ml Output Total 2600 ml Balance -480 ml Intake Oral 1920 ml IV Total 200 ml Output Urine Total 2600 ml # Bowel Movements 1 Medications Current Medications Medications Dose Ordered Sig/Carloz Route Start Time Stop Time Status Last Admin Dose Admin Ondansetron HCl 4 mg Q4HP PRN IV 12/29/24 14:15 Docusate Sodium 100 mg BIDPRN PRN PO 12/29/24 14:15 Acetaminophen 650 mg Q6HP PRN PO 12/29/24 14:15 Diagnostic Test (Pha) 1 strip ACHS 12/29/24 17:00 01/03/25 06:01 1 STRIP Insulin Human Regular HS SC 12/29/24 22:00 12/31/24 22:32 2 UNITS Insulin Human Regular AC SC 12/29/24 17:00 01/02/25 17:03 6 UNITS Dextrose 50 ml UD PRN IV 12/29/24 14:30 Baclofen 10 mg TIDP PRN PO 12/29/24 14:30 12/29/24 21:45 10 MG Cholecalciferol 1,000 unit DAILY PO 12/30/24 10:00 01/02/25 08:47 1,000 UNIT Gabapentin 100 mg DAILY PO 12/30/24 10:00 01/02/25 08:46 100 MG Acetaminophen/ Hydrocodone Bitart 1 tab Q6HP PRN PO 12/29/24 14:30 01/02/25 20:43 1 TAB Patient Own Medication 1 tab DAILY PO 12/30/24 10:00 UNV Patient Own Medication 1 tab QHSP PRN PO 12/29/24 14:30 Thiamine HCl 100 mg DAILY PO 12/30/24 10:00 01/02/25 08:47 100 MG Folic Acid 1 mg DAILY PO 12/30/24 10:00 01/02/25 08:47 1 MG Multivitamins/ Minerals 1 tab DAILY PO 12/30/24 10:00 01/02/25 08:45 1 TAB Losartan Potassium 100 mg DAILY PO 12/30/24 10:00 01/02/25 08:46 100 MG Hydrochlorothiazide 25 mg DAILY PO 12/30/24 10:00 01/02/25 08:46 25 MG Lorazepam 1 mg Q2HP PRN IV 12/29/24 17:15 12/29/24 21:43 1 MG Cefazolin Sodium/ Dextrose 50 ml @ 50 mls/hr Q8H IV 12/31/24 00:30 01/02/25 23:32 50 MLS/HR Sodium Chloride 10 ml QSHIFT@10,22 IV 01/02/25 22:00 01/02/25 21:53 10 ML Laboratory Results Laboratory Tests 12/30/24 04:44 01/01/25 04:58 Urinalysis Test 12/29/24 07:30 Urine Color Light-yellow (Yellow) Urine Clarity Clear (Clear) Urine pH 5.0 (5.0-9.0) Urine Specific [place] 1.017 (1.001-1.035) Urine Protein Negative (Negative) Urine Ketones Negative (Negative) Urine Blood Negative /uL (Negative) Urine Nitrite Negative (Negative) Urine Bilirubin Negative (Negative) Urine Urobilinogen Normal mg/dL (Negative) Urine Leukocyte Esterase Negative /uL (Negative) Urine RBC 1 /hpf (0 - 3) Urine Microscopic WBC 1 /HPF (0-3) Urine Squamous Epithelial Cells Few /hpf (<5) Urine Bacteria None seen /hpf (None Seen) Urine Glucose Normal mg/dL (Normal) Microbiology Microbiology Date/Time Source Procedure Growth Status 12/29/24 13:05 Blood Blood Culture - Preliminary NO GROWTH AFTER 72 HOURS OF INCUBATION. Resulted Labs and/or images reviewed: Labs reviewed by me, Image(s) reviewed by me Assessment/Plan Assessment/Plan Cellulitis, bilateral lower extremities and feet, Ancef 2 g IV q.8 hours per recommendation of ID Dr. Osullivan which he will continue in the halfway for one month , consult for corrugator operator helper Dr. Agarwal appreciated, no surgical intervention Acute kidney injury, Uncontrolled diabetes: Insulin sliding scale Diabetic nephropathy neuropathy vasculopathy Chronic current alcohol abuse: Counseling, thiamine folic acid DVT ruled out Peripheral arterial disease ruled out Coronary artery disease status post stents Acute COPD exacerbation Hypertension Hard of hearing Medication noncompliance Irritable bladder: Ditropan PICC line ordered Blood cultures negative Patient was discharged to assisted facility on 01/02/2025 for one month of IV antibiotics for cellulitis director of food and beverage services working on a assisted facility down the [place] per wishes of patient's son and daughter Plan discussed with: Patient My Orders Orders - NIKKI LORA MD Procedure Category Date Status Time Nursing Protocol Picc DONY 01/02/25 In Process 10:44 Change Dressing Prn [facility] 01/02/25 In Process 10:44 Sodium Chloride Lock PHA 01/02/25 In Process (Saline Lock Ns) 22:00 Do Not Use Picc For [facility] 01/02/25 In Process Blood Cult 10:44 May Draw Blood From [facility] 01/02/25 In Process Picc 10:44 Chest Portable XY 01/02/25 Resulted 10:44 Ok To Use Picc [facility] 01/02/25 In Process 10:44 Change Picc Dressing [facility] 01/02/25 In Process Q7 Days 10:44 * Incident Response Lead CONS 01/02/25 Transmitted Consult 16:42 Date of Service: Jan 03, 2025 Billing Provider: INKKI LORA MD Common Visit Codes: [id number] INP/OBS CARE(HIGH) NIKKI LORA MD Jan 03, 2025 08:49
[2025-01-03] MEDS: OXYBUTYNIN CHL 5 MG TAB PO SCH (09:50)
--- NOTE | 2025-01-03 16:01 | DVHPNRES ---
Progress Note Date Seen: Jan 03, 2025 Resident Creating Document: MILKA TUTTLE RESIDENT Has the PT tested + for MRSA If YES, has PT been informed?: No Medical Necessity Reason Pt with a Central, PICC or Fol: Yes Subjective Review of Systems This is a 69-year-old male past medical history of hypertension, type 2 diabetes, coronary artery disease status post two stents placed in the past, heart hearing. Patient presented to the ED with chief complaint of bleeding of the toes with bilateral feet pain. Patient states that eight days back, he woke up in the morning and noticed blood in the floor, when he checked his foods there were crusty ulcers on the tip of the toes of bilateral feet. Patient states that at that time both Feets felt numb and did not have any pain and denied any history of recent trauma or any other possible source of the bleeding. Patient states that two days afterwards he started feeling slight pain in the tip of the toes and that is when he came to the ED. The patient was initially started on vancomycin and clindamycin but was switched to IV cefazolin. Blood cultures came back negative and there is no wound cultures at this time. Bilateral arterial Doppler left lower extremity ultrasound showed no hemodynamic significant stenosis at this time and bilateral venous Doppler showed no evidence of DVT. There is no need for IV antibiotic at this time. Patient might be discharged with Keflex 1 g t.i.d. p.o. ROS Constitutional: Denies weight loss, fever and chills. HEENT: Denies changes in vision and hearing. Respiratory: Denies shortness of breath and cough Cardiovascular: Denies chest discomfort or palpitations GI: Denies abdominal pain, nausea, vomiting and diarrhea. : Denies dysuria and urinary frequency. Musculoskeletal: Reports bilateral feet pain with crusty lesions on the tip of the toes of both feet. Skin: Denies rash and pruritus. Neurological: Denies dizziness, headache, vision or hearing problems Objective vital signs Vital Sign Date Time Temp Pulse Resp B/P (MAP) Pulse Ox O2 Delivery O2 Flow Rate FiO2 01/03/25 09:50 140/85 01/03/25 09:00 98.0 79 16 96 98.0 01/03/25 08:00 Room Air* 0 21 Total Intake and Output 01/02/25 01/02/25 01/03/25 15:00 23:00 07:00 Intake Total 100 ml 920 ml 1100 ml Output Total 1100 ml 1500 ml Balance 100 ml -180 ml -400 ml medications Current Medications Medications Dose Ordered Sig/Carloz Route Start Time Stop Time Status Last Admin Dose Admin Ondansetron HCl 4 mg Q4HP PRN IV 12/29/24 14:15 Docusate Sodium 100 mg BIDPRN PRN PO 12/29/24 14:15 Acetaminophen 650 mg Q6HP PRN PO 12/29/24 14:15 Diagnostic Test (Pha) 1 strip ACHS 12/29/24 17:00 01/03/25 11:30 1 STRIP Insulin Human Regular HS SC 12/29/24 22:00 12/31/24 22:32 2 UNITS Insulin Human Regular AC SC 12/29/24 17:00 01/02/25 17:03 6 UNITS Dextrose 50 ml UD PRN IV 12/29/24 14:30 Baclofen 10 mg TIDP PRN PO 12/29/24 14:30 12/29/24 21:45 10 MG Cholecalciferol 1,000 unit DAILY PO 12/30/24 10:00 01/03/25 09:50 1,000 UNIT Gabapentin 100 mg DAILY PO 12/30/24 10:00 01/03/25 09:50 100 MG Acetaminophen/ Hydrocodone Bitart 1 tab Q6HP PRN PO 12/29/24 14:30 01/03/25 10:30 1 TAB Patient Own Medication 1 tab DAILY PO 12/30/24 10:00 UNV Patient Own Medication 1 tab QHSP PRN PO 12/29/24 14:30 Thiamine HCl 100 mg DAILY PO 12/30/24 10:00 01/03/25 09:50 100 MG Folic Acid 1 mg DAILY PO 12/30/24 10:00 01/03/25 09:50 1 MG Multivitamins/ Minerals 1 tab DAILY PO 12/30/24 10:00 01/03/25 09:50 1 TAB Losartan Potassium 100 mg DAILY PO 12/30/24 10:00 01/03/25 09:50 100 MG Hydrochlorothiazide 25 mg DAILY PO 12/30/24 10:00 01/03/25 09:49 25 MG Lorazepam 1 mg Q2HP PRN IV 12/29/24 17:15 12/29/24 21:43 1 MG Cefazolin Sodium/ Dextrose 50 ml @ 50 mls/hr Q8H IV 12/31/24 00:30 01/03/25 09:49 50 MLS/HR Sodium Chloride 10 ml QSHIFT@10,22 IV 01/02/25 22:00 01/03/25 10:00 10 ML Oxybutynin Chloride 5 mg Q12HR PO 01/03/25 10:00 01/03/25 09:50 5 MG Examination Physical Examination General: Patient alert and oriented in person, place and time. Patient following commands. HEENT: Normocephalic, atraumatic, moist mucous membranes Respiratory/pulmonary: Clear lungs bilaterally, no associated crackles or wheezes. Cardiovascular: Normal heart sounds S1 and S2 with no associated murmurs Abdomen: Abdomen nondistended, there is no pain to palpation in any of the abdominal quadrants, no palpable masses. Extremities: There is no peripheral edema present at the lower extremities. There is crusty lesions on the tip of the toes of bilateral feet with a lot of pain but no bleeding at this time. Skin: No rashes or pruritus, there is no sacral edema present at this time. Neurological: Intact cranial nerves with no focal neurologic deficits laboratory and microbiology Laboratory Tests 01/01/25 04:58 12/30/24 04:44 Test 12/30/24 04:44 Range/Units Serum Glucose 89 74-106 mg/dL Microbiology Date/Time Source Procedure Growth Status 12/29/24 13:05 Blood Blood Culture - Final NO GROWTH AFTER 5 DAYS OF INCUBATION. Complete Problem List/Assessment/Plan Problem List/Assessment/Plan Assessment/plan Acute cellulitis of bilateral lower feet Chronic venous stasis (insufficiency) type 2 diabetes mellitus with polyneuropathy JIM due to vasomotor nephropathy, resolved Primary hypertension Chronic alcohol abuse History of coronary artery disease status post two stents placed Morbid obesity Plan -no wound cultures at this time, last blood cultures were negative -stopped IV cefazolin, start Keflex 1 g t.i.d. p.o. -patient can be discharged on Keflex 1 g t.i.d. p.o. -indications per primary medical team -maintain blood glucose between 140-180 Goals of care discussed with the patient at bedside, full code Plan discussed with Dr. Osullivan Plan discussed with: Patient Dietary Evaluation Review Comments: Nutrition Recommendation 1) CCHO 75gm + cardiac diet 2) Flavio 1 pk BID 3) Refer Finished Garment Inspector for diabetes education Expected Outcomes/Goals: Wound to improve Fu 3-5 days MILKA TUTTLE RESIDENT Jan 03, 2025 16:01
[2025-01-03] MEDS: CEPHALEXIN 250 MG CAP PO SCH (22:08)
[2025-01-04 01:00] VITALS: BP 106/76; PULSE 87; RESP 19; TEMP 97.6; O2SAT 97
[2025-01-04 05:00] VITALS: BP 131/87; PULSE 64; RESP 19; TEMP 97.7; O2SAT 99
[2025-01-04] MEDS ORDERED: ZOLPIDEM TARTRATE 5 MG TAB PO PRN (08:45)
--- NOTE | 2025-01-04 08:52 | DVHPN2 ---
Reviewed: Care Plan, H&P, Labs, Medications, Previous Orders, Radiology Changes from previous H/P or p: No Changes Eyes: No Pain, No Vision change, No Conjunctivae inflammation, No Eyelid inflammation, No Other, No Redness ENT: No Ear pain, No Ear discharge, No Nose pain, No Nose discharge, No Nose congestion, No Mouth pain, No Mouth swelling, No Throat pain, No Throat swelling, No Other Cardiovascular: No Chest Pain, No Palpitations, No Orthopnea, No Paroxysmal Noc. Dyspnea; Edema (bilateral lower extremities); No Lt Headedness, No Other Respiratory: No Cough, No Dry, No Shortness of breath, No SOB with excertion, No Wheezing, No Hemoptysis, No Pleuritic Pain, No Sputum, No Other Gastrointestinal: No Nausea, No Vomiting, No Abdominal Pain, No Diarrhea, No Constipation, No Melena, No Hematochezia, No Other Genitourinary: No Dysuria, No Frequency, No Incontinence, No Hematuria, No Retention, No Other Musculoskeletal: No other, No neck pain, No shoulder pain, No arm pain, No back pain, No hand pain, No leg pain, No foot pain Skin: No Rash, No Lesions, No Jaundice, No Bruising; Other (bleeding/cuts to toes on bilateral feet) Objective Vitals Vital Signs Date Time Temp Pulse Resp B/P (MAP) Pulse Ox O2 Delivery O2 Flow Rate FiO2 01/04/25 05:00 97.7 64 19 131/87 (102) 99 97.7 01/03/25 20:00 Room Air* 0 21 Intake/Output Intake and Output 01/04/25 07:00 Intake Total 2598 ml Output Total 2890 ml Balance -292 ml Intake Oral 2598 ml Output Urine Total 2890 ml Medications Current Medications Medications Dose Ordered Sig/Carloz Route Start Time Stop Time Status Last Admin Dose Admin Ondansetron HCl 4 mg Q4HP PRN IV 12/29/24 14:15 Docusate Sodium 100 mg BIDPRN PRN PO 12/29/24 14:15 Acetaminophen 650 mg Q6HP PRN PO 12/29/24 14:15 Diagnostic Test (Pha) 1 strip ACHS 12/29/24 17:00 01/04/25 05:46 1 STRIP Insulin Human Regular HS SC 12/29/24 22:00 12/31/24 22:32 2 UNITS Insulin Human Regular AC SC 12/29/24 17:00 01/02/25 17:03 6 UNITS Dextrose 50 ml UD PRN IV 12/29/24 14:30 Baclofen 10 mg TIDP PRN PO 12/29/24 14:30 12/29/24 21:45 10 MG Cholecalciferol 1,000 unit DAILY PO 12/30/24 10:00 01/03/25 09:50 1,000 UNIT Gabapentin 100 mg DAILY PO 12/30/24 10:00 01/03/25 09:50 100 MG Acetaminophen/ Hydrocodone Bitart 1 tab Q6HP PRN PO 12/29/24 14:30 01/04/25 05:42 1 TAB Patient Own Medication 1 tab DAILY PO 12/30/24 10:00 UNV Patient Own Medication 1 tab QHSP PRN PO 12/29/24 14:30 Thiamine HCl 100 mg DAILY PO 12/30/24 10:00 01/03/25 09:50 100 MG Folic Acid 1 mg DAILY PO 12/30/24 10:00 01/03/25 09:50 1 MG Multivitamins/ Minerals 1 tab DAILY PO 12/30/24 10:00 01/03/25 09:50 1 TAB Losartan Potassium 100 mg DAILY PO 12/30/24 10:00 01/03/25 09:50 100 MG Hydrochlorothiazide 25 mg DAILY PO 12/30/24 10:00 01/03/25 09:49 25 MG Lorazepam 1 mg Q2HP PRN IV 12/29/24 17:15 12/29/24 21:43 1 MG Sodium Chloride 10 ml QSHIFT@10,22 IV 01/02/25 22:00 01/03/25 22:08 10 ML Oxybutynin Chloride 5 mg Q12HR PO 01/03/25 10:00 01/03/25 22:08 5 MG Cephalexin 1,000 mg TID PO 01/03/25 22:00 01/04/25 05:42 1,000 MG Laboratory Results Laboratory Tests 12/30/24 04:44 01/01/25 04:58 Urinalysis Test 12/29/24 07:30 Urine Color Light-yellow (Yellow) Urine Clarity Clear (Clear) Urine pH 5.0 (5.0-9.0) Urine Specific [place] 1.017 (1.001-1.035) Urine Protein Negative (Negative) Urine Ketones Negative (Negative) Urine Blood Negative /uL (Negative) Urine Nitrite Negative (Negative) Urine Bilirubin Negative (Negative) Urine Urobilinogen Normal mg/dL (Negative) Urine Leukocyte Esterase Negative /uL (Negative) Urine RBC 1 /hpf (0 - 3) Urine Microscopic WBC 1 /HPF (0-3) Urine Squamous Epithelial Cells Few /hpf (<5) Urine Bacteria None seen /hpf (None Seen) Urine Glucose Normal mg/dL (Normal) Microbiology Microbiology Date/Time Source Procedure Growth Status 12/29/24 13:05 Blood Blood Culture - Final NO GROWTH AFTER 5 DAYS OF INCUBATION. Complete Labs and/or images reviewed: Labs reviewed by me, Image(s) reviewed by me Assessment/Plan Assessment/Plan Cellulitis, bilateral lower extremities and feet, ID Dr. Osullivan discontinued Ancef and placed on Keflex 1000 mg PO TID for five consult for hardware engineer Dr. Agarwal appreciated, no surgical intervention Acute kidney injury, Uncontrolled diabetes: Insulin sliding scale Diabetic nephropathy neuropathy vasculopathy Chronic current alcohol abuse: Counseling, thiamine folic acid DVT ruled out Peripheral arterial disease ruled out Coronary artery disease status post stents Acute COPD exacerbation Hypertension Hard of hearing Medication noncompliance Irritable bladder: Ditropan Patient will be discharged to halfway facility for physical therapy medication management and rehab Plan discussed with: Patient My Orders Orders - NIKKI LORA MD Procedure Category Date Status Time Oxybutynin Chloride PHA 01/03/25 In Process Tablet (Ditropan Tab 10:00 Zolpidem Tartrate PHA 01/04/25 Verified (Ambien) 08:45 Date of Service: Jan 04, 2025 Billing Provider: NIKKI LORA MD Common Visit Codes: [id number] INP/OBS CARE(HIGH) NIKKI LORA MD Jan 04, 2025 08:52
[2025-01-04 09:00] VITALS: BP 131/81; PULSE 66; RESP 18; TEMP 98.2; O2SAT 98
[2025-01-04 12:35] VITALS: BP 129/74; PULSE 72; RESP 18; TEMP 97.6; O2SAT 99
[2025-01-04 14:00] VITALS: BP 136/84; PULSE 75
--- NOTE | 2025-01-04 14:01 | DVHPNRES ---
Progress Note Date Seen: Jan 04, 2025 Resident Creating Document: MILKA TUTTLE RESIDENT Has the PT tested + for MRSA If YES, has PT been informed?: No Medical Necessity Reason Pt with a Central, PICC or Fol: Yes Subjective Review of Systems This is a 69-year-old male past medical history of hypertension, type 2 diabetes, coronary artery disease status post two stents placed in the past, heart hearing. Patient presented to the ED with chief complaint of bleeding of the toes with bilateral feet pain. Patient states that eight days back, he woke up in the morning and noticed blood in the floor, when he checked his foods there were crusty ulcers on the tip of the toes of bilateral feet. Patient states that at that time both Feets felt numb and did not have any pain and denied any history of recent trauma or any other possible source of the bleeding. Patient states that two days afterwards he started feeling slight pain in the tip of the toes and that is when he came to the ED. The patient was initially started on vancomycin and clindamycin but was switched to IV cefazolin. Blood cultures came back negative and there is no wound cultures at this time. Bilateral arterial Doppler left lower extremity ultrasound showed no hemodynamic significant stenosis at this time and bilateral venous Doppler showed no evidence of DVT. patient seen and examined at bedside. Patient statest that is feeling well overall and has no major complaints at this time. bilateral feet has crusted lesions in the tip of the toes but no active bleeding at this time. Patient can be discharged on cephalexin 1000mg po TID for 5-7 days. Patient will be going to [facility] for physical therapy and rehab. ROS Constitutional: Denies weight loss, fever and chills. HEENT: Denies changes in vision and hearing. Respiratory: Denies shortness of breath and cough Cardiovascular: Denies chest discomfort or palpitations GI: Denies abdominal pain, nausea, vomiting and diarrhea. : Denies dysuria and urinary frequency. Musculoskeletal: Denies myalgias and joint pain Skin: Denies rash and pruritus. Neurological: Denies dizziness, headache, vision or hearing problems Objective vital signs Vital Sign Date Time Temp Pulse Resp B/P (MAP) Pulse Ox O2 Delivery O2 Flow Rate FiO2 01/04/25 13:09 129/74 01/04/25 12:35 97.6 72 18 99 97.6 01/03/25 20:00 Room Air* 0 21 Total Intake and Output 01/03/25 01/03/25 01/04/25 15:00 23:00 07:00 Intake Total 1898 ml 700 ml Output Total 1000 ml 1890 ml Balance 898 ml -1190 ml medications Current Medications Medications Dose Ordered Sig/Carloz Route Start Time Stop Time Status Last Admin Dose Admin Ondansetron HCl 4 mg Q4HP PRN IV 12/29/24 14:15 Docusate Sodium 100 mg BIDPRN PRN PO 12/29/24 14:15 Acetaminophen 650 mg Q6HP PRN PO 12/29/24 14:15 Diagnostic Test (Pha) 1 strip ACHS 12/29/24 17:00 01/04/25 12:53 1 STRIP Insulin Human Regular HS SC 12/29/24 22:00 12/31/24 22:32 2 UNITS Insulin Human Regular AC SC 12/29/24 17:00 01/02/25 17:03 6 UNITS Dextrose 50 ml UD PRN IV 12/29/24 14:30 Baclofen 10 mg TIDP PRN PO 12/29/24 14:30 12/29/24 21:45 10 MG Cholecalciferol 1,000 unit DAILY PO 12/30/24 10:00 01/04/25 10:29 1,000 UNIT Gabapentin 100 mg DAILY PO 12/30/24 10:00 01/04/25 10:29 100 MG Acetaminophen/ Hydrocodone Bitart 1 tab Q6HP PRN PO 12/29/24 14:30 01/04/25 13:09 1 TAB Patient Own Medication 1 tab DAILY PO 12/30/24 10:00 UNV Patient Own Medication 1 tab QHSP PRN PO 12/29/24 14:30 Thiamine HCl 100 mg DAILY PO 12/30/24 10:00 01/04/25 10:29 100 MG Folic Acid 1 mg DAILY PO 12/30/24 10:00 01/04/25 10:27 1 MG Multivitamins/ Minerals 1 tab DAILY PO 12/30/24 10:00 01/04/25 10:27 1 TAB Losartan Potassium 100 mg DAILY PO 12/30/24 10:00 01/04/25 10:29 100 MG Hydrochlorothiazide 25 mg DAILY PO 12/30/24 10:00 01/04/25 13:09 25 MG Lorazepam 1 mg Q2HP PRN IV 12/29/24 17:15 12/29/24 21:43 1 MG Sodium Chloride 10 ml QSHIFT@10,22 IV 01/02/25 22:00 01/04/25 10:27 10 ML Oxybutynin Chloride 5 mg Q12HR PO 01/03/25 10:00 01/04/25 10:29 5 MG Cephalexin 1,000 mg TID PO 01/03/25 22:00 01/04/25 05:42 1,000 MG Zolpidem Tartrate 10 mg HSPRN PRN PO 01/04/25 08:45 Examination Physical Examination General: Patient alert and oriented in person, place and time. Patient following commands. HEENT: Normocephalic, atraumatic, moist mucous membranes Respiratory/pulmonary: Clear lungs bilaterally, no associated crackles or wheezes. Cardiovascular: Normal heart sounds S1 and S2 with no associated murmurs Abdomen: Abdomen nondistended, there is no pain to palpation in any of the abdominal quadrants, no palpable masses. Extremities: There is no peripheral edema present at the lower extremities. There is crusty lesions on the tip of the toes of bilateral feet with a lot of pain but no bleeding at this time. Skin: No rashes or pruritus, there is no sacral edema present at this time. Neurological: Intact cranial nerves with no focal neurologic deficits laboratory and microbiology Laboratory Tests 01/04/25 10:50 01/01/25 04:58 12/30/24 04:44 Test 12/30/24 04:44 Range/Units Serum Glucose 89 74-106 mg/dL Microbiology Date/Time Source Procedure Growth Status 12/29/24 13:05 Blood Blood Culture - Final NO GROWTH AFTER 5 DAYS OF INCUBATION. Complete Problem List/Assessment/Plan Problem List/Assessment/Plan Assessment/plan Acute cellulitis of bilateral lower feet Chronic venous stasis (insufficiency) type 2 diabetes mellitus with polyneuropathy JIM due to vasomotor nephropathy, resolved Primary hypertension Chronic alcohol abuse History of coronary artery disease status post two stents placed Morbid obesity Plan -no wound cultures at this time, last blood cultures were negative -Continue Keflex 1 g t.i.d. p.o. -patient can be discharged on Keflex 1 g t.i.d. p.o. for 5-7 days. -Patient going to [facility] for [facility] and rehab. -indications per primary medical team -maintain blood glucose between 140-180 Goals of care discussed with the patient at bedside, full code Plan discussed with Dr. Osullivan Plan discussed with: Patient My Orders My Orders Orders - MILKA TUTTLE Procedure Category Date Status Time Cephalexin Capsule PHA 01/03/25 In Process (Keflex Capsule) 22:00 Dietary Evaluation Review Comments: Nutrition Recommendation 1) CCHO 75gm + cardiac diet 2) Flavio 1 pk BID 3) Refer [employer] for diabetes education Expected Outcomes/Goals: Wound to improve Fu 3-5 days MILKA TUTTLE RESIDENT Jan 04, 2025 14:01
== END 2025-01-04 15:30 | DRG 602 ==
LOC: EDBD 07:27 → ER 07:27 → OVERFLOW 14:08 → CENTRAL 15:30
PROVIDERS: ADMIT Family Medicine; ATTEND Family Medicine
PROC: 02HV33Z Insertion of Infusion Device into Superior Vena Cava, Percutaneous Approach (ICD-10-PCS; principal; 2025-01-02)
PROC: B548ZZA Ultrasonography of Superior Vena Cava, Guidance (ICD-10-PCS; 2025-01-02)
DX: L03.115 Cellulitis of right lower limb (principal); N17.0 Acute kidney failure with tubular necrosis; J44.1 Chronic obstructive pulmonary disease with (acute) exacerbation; Z68.42 Body mass index [BMI] 45.0-49.9, adult; E44.0 Moderate protein-calorie malnutrition; L03.116 Cellulitis of left lower limb; E11.21 Type 2 diabetes mellitus with diabetic nephropathy; I10 Essential (primary) hypertension; I25.10 Atherosclerotic heart disease of native coronary artery without angina pectoris; I87.8 Other specified disorders of veins; E11.42 Type 2 diabetes mellitus with diabetic polyneuropathy; E66.01 Morbid (severe) obesity due to excess calories; N32.89 Other specified disorders of bladder; I87.2 Venous insufficiency (chronic) (peripheral); F10.20 Alcohol dependence, uncomplicated; Z79.899 Other long term (current) drug therapy; Z95.5 Presence of coronary angioplasty implant and graft; Z91.148 Patient's other noncompliance with medication regimen for other reason; Y90.9 Presence of alcohol in blood, level not specified
CPT/HCPCS: 36415; 36569; 71045; 73630; 76705; 76937; 80053; 80202; 81001; 82565; 82607; 82746; 82962; 83036; 83605; 84132; 84484; 85025; 85610; 85730; 87040; 87426; 93005; 93306; 93925; 93970; 96361; 96365; 97110; 97116; 97163; 97530; G0378; J1815; J3490